=== PATIENT | female | born 1945 | race Caucasian/White ===

== ENCOUNTER 2020-05-27 14:46 | Inpatient (IN) | payer BC, MEDICARE ==
[2020-05-27] MEDS ORDERED: Albuterol Sulfate 1.25 MG/3 ML NEB ONE (15:11)
[2020-05-27] MEDS ORDERED: Albuterol 200 PUFF (6.7GM INHALER) ONE (15:12)
[2020-05-27] MEDS ORDERED: cefTRIAXone\\ROCEPHIN 1 GM VIAL ONE ×2 (15:23→15:52)
[2020-05-27] MEDS ORDERED: Magnesium 2 GM/50 ML BAG (IN WATER) ONE (15:23)
[2020-05-27] MEDS ORDERED: Dexamethasone 10 MG/ML VIAL ONE (15:23)
[2020-05-27] MEDS ORDERED: Lorazepam 2 MG/ML VIAL ONE ×2 (15:51→19:39)
[2020-05-27] MEDS ORDERED: Ondansetron PF 4 MG/2 ML Vial ONE (15:52)
[2020-05-27] MEDS ORDERED: Azithromycin 500 MG VIAL ONE (16:03)
[2020-05-27 16:09] LABS: #Lymphocytes 0.9 thou/uL (1.20-3.40); #Monocytes 0.6 thou/uL (0.11-0.59); #Neutrophils 4.7 thou/uL (1.40-6.50); %Basophils 0.3 % (0.0-1.0); %Eosinophils 0.4 % (0.0-10.0); %Monocytes 9.2 % (0.0-10.0); %Neutrophils 76.1 % (42.0-75.0); Mean Corpuscular HGB CONC 32.6 g/dL (32.0-36.0); Mean Corpuscular Volume 85.7 fL (78.0-98.0); Mean Platelet Volume 9.4 fL (7.4-10.4); Platelet Count 148 thou/uL (130-400); Red Blood Cell (RBC) Count 3.93 mill/uL (4.20-5.40); White Blood Cell (WBC) Count 6.2 thou/uL (4.8-10.8)
--- NOTE | 2020-05-27 16:22 | RAD ---
RADIOGRAPH CHEST 1 VIEW: Date: 05/27/20 Time: 3:48 p.m. HISTORY: 74-year-old female with respiratory distress, dyspnea, and hypoxemia with fever. COMPARISON: 09/23/16. FINDINGS: There is mild haziness with reticulonodular densities at left lung base, which appears to be new or m ore prominent than on the prior study. It is uncertain whether this is due to overlying soft tissues, becoming more pronounced because of the lordotic positioning on the current study compared to the pr ior. The rest of the visualized lung saunders are grossly clear. No cardiomegaly or pneumothorax. No pu lmonary edema. No effacement of lateral costophrenic angles. IMPRESSION: 1. Questionable mild early infiltrate at left base versus artifact. 2. Recommend short interval follow-up with PA and lateral views. 3. No consolidation. 4. The rest of the lung saunders are clear. JN [] POS: JIN
[2020-05-27 16:45] LABS: SARS-CoV-2 NAA Rapid Test DETECTED (NotDetected)
[2020-05-27 16:45] LABS: ALT (SGPT) 13 U/L (8-55); AST (SGOT) 25 U/L (5-34); Alkaline Phosphatase 66 U/L (40-110); Anion Gap 13 mmol/L (10-20); BUN (Urea Nitrogen) 12 mg/dL (9.8-20.1); Bilirubin, Total 0.3 mg/dL (0.2-1.2); CK (CPK) 172 U/L (29-168); Calc. Creatinine Clearance 0 mL/min (70-130); Calcium 7.4 mg/dL (7.8-10.44); Carbon Dioxide 22 mmol/L (23-31); Chloride 100 mmol/L (98-107); Globulin 3.2 g/dL (2.4-3.5); Glucose 188 mg/dL (83-110); Magnesium 1.5 mg/dL (1.6-2.6); Potassium 4.3 mmol/L (3.5-5.1); Protein, Total 6.2 g/dL (6.0-8.3); Sodium 131 mmol/L (136-145)
--- NOTE | 2020-05-27 17:51 | PDOC.HHP ---
Hospitalist HPI - History of Present Illness Shortness of breath History of Present Illness: Patient has underlying history of COPD, patient is coming to emergency room with increasing shortness of breath, patient was also having fever on and off yesterday, patient was also tachypneic, patient reports that recently see went to [place] and after that her symptoms started, she was exposed with multiple people who were sick, for last 2 days she has worsening of symptoms, she was tested positive for COVID-19 in the emergency room, when she arrived to emergency room she was saturating 86% and she was tachypneic, she was requiring nonrebreather by EMS and subsequently in the emergency room patient was kept on BiPAP because of respiratory distress, patient denies any runny nose or nasal congestion, she has wheezing, she has cough, she has increasing shortness of breath, she denies any nasal congestion or sinus pain or sore throat. She does not have any loss of taste or smell sensation. ED Course: In the emergency room patient received 2 L of IV fluid, Rocephin and azithr omycin, lorazepam 1 mg, magnesium sulfate 2 g, Decadron 10 mg, Zofran 4 mg VITAL SIGNS Tahmina May 27, 2020 14:56 ELENA Hairston Klara BP: 126/66, MAP: 86, Pulse: 107, Resp: 25, Temp: 98.7 (Oral), Pain: 7, O2 sat: 99 on (Non Rebreather), Time: 05/27/2020 14:56. VITAL SIGNS Tahmina May 27, 2020 15:13 ELENA Hairston Klara Pulse: 99, Time: 05/27/2020 15:13. VITAL SIGNS Tahmina May 27, 2020 16:14 ELENA Hairston Klara BP: 136/63, MAP: 87, Pulse: 95, Resp: 27, Pain: 5, O2 sat: 96 on (Bipap), Time: 05/27/2020 16:14. Hospitalist ROS - Review of Systems Constitutional: reports: fever, weakness, malaise Eyes: denies: pain, vision change, conjunctivae inflammation, eyelid inflammation, redness, other ENT: denies: ear pain, ear discharge, nose pain, nose discharge, nose congestion, mouth pain, mouth swelling, throat pain, throat swelling, other Respiratory: reports: cough, shortness of breath, SOB with excertion, sputum, wheezing Cardiovascular: denies: chest pain, palpitations, orthopnea, paroxysmal noc. dyspnea, edema, light headedness, other Gastrointestinal: denies: nausea, vomiting, abdominal pain, diarrhea, constipation, melena, hematochezia, other Genitourinary: denies: dysuria, frequency, incontinence, hematuria, retention, other Musculoskeletal: denies: neck pain, shoulder pain, arm pain, back pain, hand pain, leg pain, foot pain, other Skin: denies: rash, lesions, yanelis, bruising, other - Medication Medications: Allergies No Known Drug Allergies Allergy (Verified 09/21/16 00:46) Home medication Medication Instructions Recorded Confirmed Type Amlodipine Besylate [amLODIPine 5 mg PO DAILY 09/21/16 09/21/16 History Besylate] Aspirin Chewable [Aspirin Chewable 81 mg PO DAILY 09/21/16 09/21/16 History Tablet] Budesonide-Formoterol [Symbicort 1 puff INH BID 09/21/16 09/21/16 History 160-4.5] Citalopram [CeleXA] 20 mg PO DAILY 09/21/16 09/21/16 History Omeprazole 20 mg PO DAILY 09/21/16 09/21/16 History Tiotropium [Spiriva Handihaler] 18 mcg INH DAILY 09/21/16 09/21/16 History traZODone 100 mg PO HS 09/21/16 09/21/16 History Resuscitation Status - Order Detail: 05/27/20 17:26 Resuscitation Status Routine Resuscitation Status: FULL: Full Resuscitation Hospitalist History - Past Medical History Other Medical History: COPD Hypertension History of lung cancer - Past Surgical History Other Surgical History: Lung biopsy Appendicectomy Breast biopsy Past psychiatric history anxiety and depression - Family History Other Family History: No strong family history of premature coronary artery disease stroke or cancer - Social History Other Social History: Patient denies any alcohol abuse, patient is former smoker, patient quit smoking few years ago, denies any other illicit drug abuse, lives at home with family - Exam General Appearance: NAD, awake alert, ill appearing Eye: PERRL, anicteric sclera ENT: normocephalic atraumatic, no oropharyngeal lesions Neck: supple, symmetric, no JVD, no thyromegaly Heart: RRR, no murmur, no gallops, no rubs Heart - other findings: Tachycardia Respiratory: rhonchi, tachypneic, wheezes Gastrointestinal: soft, non-tender, non-distended, normal bowel sounds Extremities: no cyanosis, no clubbing, no edema Skin: normal turgor, no lesions Neurological: no focal deficits Musculoskeletal: normal tone, normal strength, no muscle wasting Psychiatric: normal affect, normal behavior, A&O x 3 Hospitalist Results - Labs Result Diagrams: 05/27/20 15:47 05/27/20 15:47 Lab results: WBC 6.2 thou/uL (4.8-10.8) 05/27/20 15:47 Hgb 11.0 g/dL (12.0-16.0) L 05/27/20 15:47 Hct 33.7 % (36.0-47.0) L 05/27/20 15:47 MCV 85.7 fL (78.0-98.0) 05/27/20 15:47 Plt Count 148 thou/uL (130-400) 05/27/20 15:47 Neutrophils % 76.1 % (42.0-75.0) H 05/27/20 15:47 Sodium 131 mmol/L (136-145) L 05/27/20 15:47 Potassium 4.3 mmol/L (3.5-5.1) 05/27/20 15:47 Chloride 100 mmol/L (98-107) 05/27/20 15:47 Carbon Dioxide 22 mmol/L (23-31) L 05/27/20 15:47 BUN 12 mg/dL (9.8-20.1) 05/27/20 15:47 Creatinine 0.88 mg/dL (0.6-1.1) 05/27/20 15:47 Glucose 188 mg/dL (83-110) H 05/27/20 15:47 Lactic Acid 1.1 mmol/L (0.5-2.2) 05/27/20 15:47 Calcium 7.4 mg/dL (7.8-10.44) L 05/27/20 15:47 Total Bilirubin 0.3 mg/dL (0.2-1.2) 05/27/20 15:47 AST 25 U/L (5-34) 05/27/20 15:47 ALT 13 U/L (8-55) 05/27/20 15:47 Alkaline Phosphatase 66 U/L (40-110) 05/27/20 15:47 Creatine Kinase 172 U/L (29-168) H 05/27/20 15:47 Troponin I 0.010 ng/mL (< 0.028) 05/27/20 15:47 B-Natriuretic Peptide Less than 10.0 pg/mL (0-100) 05/27/20 15:47 Serum Total Protein 6.2 g/dL (6.0-8.3) 05/27/20 15:47 Albumin 3.0 g/dL (3.4-4.8) L 05/27/20 15:47 - EKG Interpretation EKG: Heart rate 92 QTc 450 normal sinus rhythm - Radiology Interpretation Chest x-ray Status: image reviewed by me Additional Comment: Chest x-ray consistent with early infiltrate in left base, Hospitalist H&P A/P - Problem (1) Acute respiratory failure due to COVID-19 Code(s): U07.1 - COVID-19; J96.00 - ACUTE RESPIRATORY FAILURE, UNSP W HYPOXIA OR HYPERCAPNIA Status: Acute (2) COPD exacerbation Code(s): J44.1 - CHRONIC OBSTRUCTIVE PULMONARY DISEASE W (ACUTE) EXACERBATION Status: Acute (3) Pneumonia due to 2019-nCoV Code(s): U07.1 - COVID-19; J12.89 - OTHER VIRAL PNEUMONIA Status: Acute (4) Hypomagnesemia Code(s): E83.42 - HYPOMAGNESEMIA Status: Acute (5) Hyponatremia Code(s): E87.1 - HYPO-OSMOLALITY AND HYPONATREMIA Status: Acute (6) Anxiety and depression Code(s): F41.9 - ANXIETY DISORDER, UNSPECIFIED; F32.9 - MAJOR DEPRESSIVE D ISORDER, SINGLE EPISODE, UNSPECIFIED Status: Chronic (7) Hypertension Code(s): I10 - ESSENTIAL (PRIMARY) HYPERTENSION Status: Chronic (8) History of lung cancer Code(s): Z85.118 - PERSONAL HISTORY OF MALIGNANT NEOPLASM OF BRONCHUS AND LUNG Status: Chronic - Plan Plan: Admission to [facility] BiPAP Pulmonary consultation Wean off BiPAP as tolerated Solu-Medrol 40 mg IV every 6 hourly Albuterol nebulization/MDI inhaler every 6 hourly and as needed Dulera 2 puff inhalation twice daily Empiric Rocephin 1 g every 24 hours, Azithromycin 500 mg IV daily for 3 days Remdesivir evaluation Vitamin C, zinc sulfate, vitamin D3 Her home medication will be reconciled Oxygen to keep saturation above 92% Airborne contact and droplet isolation for Covid Monitor for any deterioration Monitor inflammatory markers DVT prophylaxis Lovenox 40 mg subcu daily GI prophylaxis Pepcid 20 mg p.o. or IV twice daily CODE STATUS patient is full code Disposition plan based on clinical course, Plan of care discussed with the patient in detail., Answered all her questions
[2020-05-27] MEDS ORDERED: HYDROcodone/Acetaminophen 5/325 mg Tablet PO PRN (17:55)
[2020-05-27] MEDS ORDERED: Sodium Chloride 0.65% Nasal 44 ML BOT EA NARE PRN (17:55)
[2020-05-27] MEDS ORDERED: Ondansetron ODT 4 MG TAB PO PRN (17:55)
[2020-05-27] MEDS ORDERED: Calcium Carbonate 500 MG ChewTAB PO PRN (17:55)
[2020-05-27] MEDS ORDERED: Acetaminophen 325 MG TAB PO PRN (17:55)
[2020-05-27] MEDS ORDERED: Senokot S 8.6-50 MG TAB PO PRN (17:55)
[2020-05-27] MEDS ORDERED: Loratadine 10 MG TAB PO PRN (17:55)
[2020-05-27] MEDS ORDERED: Cepastat Lozenges 1 LOZ PO PRN (17:55)
[2020-05-27] MEDS ORDERED: Guaifenesin DM 100-10/5 ML UDCUP PO PRN (17:55)
[2020-05-27] MEDS ORDERED: Ondansetron PF 4 MG/2 ML Vial IVP PRN (17:55)
[2020-05-27] MEDS ORDERED: Benzonatate 100 MG CAP PO PRN (17:55)
[2020-05-27] MEDS ORDERED: Bisacodyl 10 MG SUPP PR PRN (17:55)
[2020-05-27] MEDS ORDERED: Loperamide HCl 2 MG CAP PO PRN (17:55)
[2020-05-27] MEDS ORDERED: hydrALAZINE 20 MG/ML VIAL SLOW IVP PRN (17:55)
[2020-05-27 18:30] LABS: Bilirubin Negative (Negative); Blood, Urine Negative (Negative); Clarity Clear (Clear); Glucose, Urine (Dipstick) 300 mg/dL (Negative); Ketone, Urine Trace mg/dL (Negative); Leukocyte Negative Leu/uL (Negative); Nitrite Negative (Negative); Protein, Urine (Dipstick) Negative (Neg-Trace); Specific Gravity, Urine 1.006 (1.002-1.036); Urobilinogen Normal mg/dL (Less than 2); pH, Urine 5.5 (5.0-9.0)
[2020-05-27] MEDS ORDERED: Albuterol 200 PUFF (6.7GM INHALER) INH PRN (18:52)
[2020-05-27] MEDS ORDERED: Albuterol Sulfate 2.5 mg/3 ml Neb NEB SCH (19:00)
[2020-05-28] MEDS: Mometasone 200 MCG/Formoterol 5 MCG 120 PUFF INHALER INH SCH ×3 (01:12→18:33)
[2020-05-28] MEDS: Famotidine/PF 20 mg/2ml Vial SLOW IVP SCH ×3 (01:18→21:02)
[2020-05-28] MEDS: Famotidine 20 MG TAB PO SCH ×3 (01:18→21:02)
[2020-05-28] MEDS: methylPREDNISolone Sod Succ/PF 125 MG/2 ML VIAL IVP SCH ×3 (01:18→07:10)
[2020-05-28 02:10] VITALS: BMI 29.1
[2020-05-28 04:15] LABS: #Lymphocytes 0.8 thou/uL (1.20-3.40); #Monocytes 0.1 thou/uL (0.11-0.59); #Neutrophils 2.4 thou/uL (1.40-6.50); %Basophils 0.3 % (0.0-1.0); %Eosinophils 0.3 % (0.0-10.0); %Monocytes 3.4 % (0.0-10.0); %Neutrophils 72.9 % (42.0-75.0); Hemoglobin 11.4 g/dL (12.0-16.0); Mean Corpuscular HGB CONC 32.5 g/dL (32.0-36.0); Mean Corpuscular Volume 86.2 fL (78.0-98.0); Platelet Count 164 thou/uL (130-400); RBC Distribution Width 13.6 % (11.5-14.5); Red Blood Cell (RBC) Count 4.09 mill/uL (4.20-5.40); White Blood Cell (WBC) Count 3.3 thou/uL (4.8-10.8)
[2020-05-28 04:35] LABS: ALT (SGPT) 13 U/L (8-55); AST (SGOT) 14 U/L (5-34); Albumin 3.3 g/dL (3.4-4.8); Alkaline Phosphatase 70 U/L (40-110); Anion Gap 14 mmol/L (10-20); BUN (Urea Nitrogen) 10 mg/dL (9.8-20.1); Bilirubin, Total 0.2 mg/dL (0.2-1.2); CRP (Inflammatory) 4.82 mg/dL (= or < 0.5); Calc. Creatinine Clearance 75 mL/min (70-130); Calcium 7.9 mg/dL (7.8-10.44); Carbon Dioxide 20 mmol/L (23-31); Chloride 106 mmol/L (98-107); Glucose 154 mg/dL (83-110); Magnesium 2.2 mg/dL (1.6-2.6); Potassium 4.5 mmol/L (3.5-5.1); Protein, Total 6.3 g/dL (6.0-8.3); Sodium 135 mmol/L (136-145)
[2020-05-28] MEDS ORDERED: Dexamethasone 6 MG in Sodium Chloride 0.9% 50 ML IVPB SCH (09:00)
[2020-05-28] MEDS: Ascorbic Acid 500 mg Chewable Tablet PO SCH (10:57)
[2020-05-28] MEDS: Enoxaparin Sodium 40 MG/0.4 ML SYRINGE SC SCH (10:57)
[2020-05-28] MEDS: Cholecalciferol 1,000 UNITS (25 MCG) TAB PO SCH (10:58)
[2020-05-28] MEDS: Zinc Sulfate 220 MG CAP PO SCH (10:58)
--- NOTE | 2020-05-28 14:08 | PDOC.HOSPP ---
- Subjective Encounter Date: 05/28/20 Encounter Time: 08:00 Subjective: Patient seen in follow-up for COVID-19 infection. She denies chest pain or shortness of breath at rest. She reports cough. - Objective Vital Signs & Weight: Vital Signs (12 hours) Temp Pulse Ox 05/28/20 08:00 100 05/28/20 04:00 97.7 F Weight Weight 149 lb 6 oz Most Recent Monitor Data Heart Rate from ECG 83 NIBP 149/68 NIBP BP-Mean 121 Respiration from ECG 18 SpO2 100 I&O: 05/27/20 05/28/20 05/29/20 06:59 06:59 06:59 Intake Total 330 Output Total 150 Balance 180 Result Diagrams: 05/28/20 04:00 05/28/20 04:00 Additional Labs: I reviewed patient's labs and MAR EKG Reviewed by me: Yes (Normal sinus rhythm on telemetry) Hospitalist ROS - Review of Systems Respiratory: reports: cough, dry, SOB with excertion. denies: shortness of breath, hemoptysis, pleuritic pain, sputum, wheezing Cardiovascular: denies: chest pain, palpitations, orthopnea, paroxysmal noc. dyspnea, edema, light headedness - Medication Medications: Active Medications Generic Name Dose Route Start Last Admin Trade Name Freq PRN Reason Stop Dose Admin Albuterol Sulfate 2 puff 05/27/20 18:52 05/28/20 07:21 Albuterol 200 Puff (6.7gm Inhaler) INH 2 puff Q6H PRN Administration Dyspnea/Wheezing/SOB Ascorbic Acid 1,000 mg 05/28/20 09:00 05/28/20 10:57 Ascorbic Acid 500 Mg Chewable Tablet PO 1,000 mg DAILY PAIGE Administration Cholecalciferol 1,000 units 05/28/20 09:00 05/28/20 10:58 Cholecalciferol 1,000 Units (25 Mcg) Tab PO 1,000 units DAILY PAIGE Administration Enoxaparin Sodium 40 mg 05/28/20 09:00 05/28/20 10:57 Enoxaparin Sodium 40 Mg/0.4 Ml Syringe SC 40 mg 0900 PAIGE Administration Famotidine 20 mg 05/27/20 21:00 05/28/20 10:58 Famotidine 20 Mg Tab PO 20 mg BID PAIGE Administration Famotidine 20 mg 05/27/20 21:00 05/28/20 12:12 Famotidine/Pf 20 Mg/2ml Vial SLOW IVP Not Given Q12HR PAIGE Dexamethasone 6 mg/ Sodium 50.6 mls @ 100 mls/hr 05/28/20 09:00 05/28/20 1 0:58 Chloride IVPB 50.6 mls DAILY PAIGE Administration Mometasone Furoate/Formoterol Fumar 2 puff 05/27/20 18:30 05/28/20 07:12 Mometasone 200 Mcg/Formoterol 5 Mcg 120 Puff Inhaler INH 2 puff BID-RT PAIGE Administration Zinc Sulfate 220 mg 05/28/20 09:00 05/28/20 10:58 Zinc Sulfate 220 Mg Cap PO 220 mg DAILY PAIGE Administration - Exam General Appearance: awake alert Eye: anicteric sclera ENT: normocephalic atraumatic Neck: supple, symmetric Heart: RRR Respiratory: wheezes Gastrointestinal: soft, non-tender Extremities: no clubbing Skin: no rashes Psychiatric: normal affect, normal behavior Hosp A/P - Plan -Assessment (1) Acute respiratory failure due to COVID-19 Code(s): U07.1 - COVID-19; J96.00 - ACUTE RESPIRATORY FAILURE, UNSP W HYPOXIA OR HYPERCAPNIA Status: Acute (2) COPD exacerbation Code(s): J44.1 - CHRONIC OBSTRUCTIVE PULMONARY DISEASE W (ACUTE) EXACERBATION Status: Acute (3) Pneumonia due to 2019-nCoV Code(s): U07.1 - COVID-19; J12.89 - OTHER VIRAL PNEUMONIA Status: Acute (4) Hyponatremia Code(s): E87.1 - HYPO-OSMOLALITY AND HYPONATREMIA Status: Acute (5) Anxiety and depression Code(s): F41.9 - ANXIETY DISORDER, UNSPECIFIED; F32.9 - MAJOR DEPRESSIVE DISORDER, SINGLE EPISODE, UNSPECIFIED Status: Chronic (6) Hypertension Code(s): I10 - ESSENTIAL (PRIMARY) HYPERTENSION Status: Chronic (7) History of lung cancer Code(s): Z85.118 - PERSONAL HISTORY OF MALIGNANT NEOPLASM OF BRONCHUS AND LUNG Status: Chronic (8) Hypomagnesemia Code(s): E83.42 - HYPOMAGNESEMIA Status: Resolved - Plan Patient has been weaned off of BiPAP. Start dexamethasone. Bronchodilators as needed. Sodium improved 135. Continue ceftriaxone and IV azithromycin. Pharmacy consult for remdesivir evaluation Continue Vitamin C, zinc sulfate, vitamin D3 Airborne contact and droplet isolation for Covid Monitor for any deterioration Monitor inflammatory markers DVT prophylaxis Lovenox 40 mg subcu daily
--- NOTE | 2020-05-28 14:15 | CON ---
DATE OF CONSULTATION: HISTORY OF PRESENT ILLNESS: Nyla Redding is a 74-year-old female, who was admitted on May 27 at 1454 hours with cough, shortness of breath on several days duration. In the ER, blood pressure 122/66, temperature 97, non-rebreather 99%. She was initially on BiPAP. She is now downsized to . She has been transferred to a monitored bed out of the MICU. PAST MEDICAL HISTORY: Lung cancer diagnosed several years ago. Previous tobacco abuse. COPD. PREVIOUS SURGERIES: Included; 1. Lung biopsy. 2. Appendix. 3. Breast biopsy. SOCIAL HISTORY: Former smoker, quit 10 years ago. No alcohol abuse. HOME MEDICATIONS: Include; 1. Ventolin inhaler. 2. Trazodone. 3. Spiriva. 4. Omeprazole. 5. Myrbetriq 25. 6. Celexa 40. 7. Symbicort. 8. Aspirin. She is now on ceftriaxone, Zithromax, Decadron. REVIEW OF SYSTEMS: Otherwise, 10-point negative. PHYSICAL EXAMINATION: VITAL SIGNS: Temperature is 97, pulse 80, sats 100% this morning, respiratory rate is 18. CHEST: No wheezing. No crackles. CARDIAC: Normal S1, S2. No gallops. ABDOMEN: No masses. LABORATORY DATA: White count 3000, H and H of 11 and 33, platelet count 164. On 05/27, hernandez positive. X-ray shows minimal bibasilar infiltrates. IMPRESSION: 1. Hernandez positive pneumonia. 2. Respiratory failure. 3. Bronchitis. 4. Lung cancer. 5. COPD. PLAN: She appears to be relatively asymptomatic this morning. We will go ahead and initiate her home medicine. Continue steroids. She has not received any remdesivir or plasma. She remains hypoxemic. Consider a bag of convalescent plasma. TIME SPENT: Consultation note, 70 minutes, 50% direct patient care. Job ID: [id number]
[2020-05-28] MEDS: cefTRIAXone\\ROCEPHIN 1 GM in Sodium Chloride 0.9% 100 ML IVPB SCH (14:48)
[2020-05-28] MEDS: Azithromycin 500 MG in Sodium Chloride 0.9% 250 ML 250 ML IVPB SCH (17:02)
[2020-05-29] MEDS: Mometasone 200 MCG/Formoterol 5 MCG 120 PUFF INHALER INH SCH ×2 (05:39→19:08)
[2020-05-29] MEDS: Aspirin Chewable 81 MG TAB PO SCH (08:15)
[2020-05-29] MEDS: Ascorbic Acid 500 mg Chewable Tablet PO SCH (08:16)
[2020-05-29] MEDS: Zinc Sulfate 220 MG CAP PO SCH (08:16)
[2020-05-29] MEDS: Enoxaparin Sodium 40 MG/0.4 ML SYRINGE SC SCH (08:17)
[2020-05-29] MEDS: Cholecalciferol 1,000 UNITS (25 MCG) TAB PO SCH (08:17)
[2020-05-29] MEDS: Amlodipine 5 MG TAB PO SCH (08:18)
[2020-05-29] MEDS: Citalopram 20 MG TAB PO SCH (08:18)
[2020-05-29] MEDS: Dexamethasone 4 mg/ml Vial SLOW IVP SCH (08:23)
--- NOTE | 2020-05-29 09:49 | PDOC.HOSPP ---
- Subjective Encounter Date: 05/29/20 Encounter Time: 07:45 Subjective: Patient seen and examined bedside today, this morning patient was experiencing shortness of breath, she was on 2 to 3 L nasal cannula oxygen, she has no fever, - Objective Vital Signs & Weight: Vital Signs (12 hours) Temp Pulse Resp BP Pulse Ox 05/29/20 08:30 98.4 F 86 30 H 147/67 H 96 05/29/20 04:15 98.8 F 78 18 137/59 L 98 05/28/20 23:45 97.9 F 63 19 143/69 H 94 L Weight Weight 149 lb 6 oz Most Recent Monitor Data Heart Rate from ECG 83 NIBP 149/68 NIBP BP-Mean 121 Respiration from ECG 18 SpO2 100 I&O: 05/28/20 05/29/20 05/30/20 06:59 06:59 06:59 Intake Total 330 480 Output Total 150 400 Balance 180 80 Result Diagrams: 05/28/20 04:00 05/28/20 04:00 EKG Reviewed by me: Yes (Normal sinus rhythm) Hospitalist ROS - Review of Systems Constitutional: reports: weakness, malaise. denies: fever, chills, sweats, other Respiratory: reports: cough, shortness of breath, SOB with excertion. denies: dry, hemoptysis, pleuritic pain, sputum, wheezing, other Cardiovascular: denies: chest pain, palpitations, orthopnea, paroxysmal noc. dyspnea, edema, light headedness, other Gastrointestinal: denies: nausea, vomiting, abdominal pain, diarrhea, constipation, melena, hematochezia, other Genitourinary: denies: dysuria, frequency, incontinence, hematuria, retention, other Musculoskeletal: denies: neck pain, shoulder pain, arm pain, back pain, hand pain, leg pain, foot pain, other Skin: denies: rash, lesions, yanelis, bruising, other - Medication Medications: Active Medications Generic Name Dose Route Start Last Admin Trade Name Freq PRN Reason Stop Dose Admin Albuterol Sulfate 2 puff 05/27/20 18:52 05/28/20 07:21 Albuterol 200 Puff (6.7gm Inhaler) INH 2 puff Q6H PRN Administration Dyspnea/Wheezing/SOB Amlodipine Besylate 5 mg 05/29/20 09:00 05/29/20 08:18 Amlodipine 5 Mg Tab PO 5 mg DAILY PAIGE Administration Ascorbic Acid 1,000 mg 05/28/20 09:00 05/29/20 08:16 Ascorbic Acid 500 Mg Chewable Tablet PO 1,000 mg DAILY PAIGE Administration Aspirin 81 mg 05/29/20 09:00 05/29/20 08:15 Aspirin Chewable 81 Mg Tab PO 81 mg DAILY PAIGE Administration Cholecalciferol 1,000 units 05/28/20 09:00 05/29/20 08:17 Cholecalciferol 1,000 Units (25 Mcg) Tab PO 1,000 units DAILY PAIGE Administration Citalopram Hydrobromide 40 mg 05/29/20 09:00 05/29/20 08:18 Citalopram 20 Mg Tab PO 40 mg DAILY PAIGE Administration Dexamethasone 6 mg 05/29/20 09:00 05/29/20 08:23 Dexamethasone 4 Mg/Ml Vial SLOW IVP 6 mg DAILY PAIGE Administration Enoxaparin Sodium 40 mg 05/28/20 09:00 05/29/20 08:17 Enoxaparin Sodium 40 Mg/0.4 Ml Syringe SC 40 mg 0900 PAIGE Administration Azithromycin 500 mg/ Sodium 250 mls @ 250 mls/hr 05/28/20 16:00 05/28/20 17:02 Chloride IVPB 250 mls 1600 PAIGE Administration Ceftriaxone Sodium 1 gm/ 100 mls @ 200 mls/hr 05/28/20 15:00 05/28/20 14:48 Sodium Chloride IVPB 100 mls 1500 PAIGE Administration Mirabegron 25 mg 05/29/20 09:00 05/29/20 08:23 Mirabegron Er 25 Mg Tab PO 25 mg DAILY PAIGE Administration Mometasone Furoate/Formoterol Fumar 2 puff 05/27/20 18:30 05/29/20 05:39 Mometasone 200 Mcg/Formoterol 5 Mcg 120 Puff Inhaler INH 2 puff BID-RT PAIGE Administration Pantoprazole Sodium 40 mg 05/29/20 09:00 05/29/20 08:18 Pantoprazole 40 Mg Tab PO 40 mg DAILY PAIGE Administration Zinc Sulfate 220 mg 05/28/20 09:00 05/29/20 08:16 Zinc Sulfate 220 Mg Cap PO 220 mg DAILY PAIGE Administration - Exam General Appearance: NAD, awake alert Eye: PERRL, anicteric sclera ENT: normocephalic atraumatic, no oropharyngeal lesions Neck: supple, symmetric, no JVD, no thyromegaly Heart: RRR, no murmur, no gallops, no rubs Respiratory: no wheezes, no ronchi Respiratory - other findings: Few scattered rales noted Gastrointestinal: soft, non-tender, non-distended, normal bowel sounds Extremities: no cyanosis, no clubbing, no edema Skin: normal turgor, no lesions Neurological: no focal deficits Musculoskeletal: normal tone, normal strength Psychiatric: normal affect, normal behavior Hosp A/P (1) Acute respiratory failure due to COVID-19 Code(s): U07.1 - COVID-19; J96.00 - ACUTE RESPIRATORY FAILURE, UNSP W HYPOXIA OR HYPERCAPNIA Status: Acute (2) COPD exacerbation Code(s): J44.1 - CHRONIC OBSTRUCTIVE PULMONARY DISEASE W (ACUTE) EXACERBATION Status: Acute (3) Pneumonia due to 2019-nCoV Code(s): U07.1 - COVID-19; J12.89 - OTHER VIRAL PNEUMONIA Status: Acute (4) Hypomagnesemia Code(s): E83.42 - HYPOMAGNESEMIA Status: Resolved (5) Hyponatremia Code(s): E87.1 - HYPO-OSMOLALITY AND HYPONATREMIA Status: Resolved (6) Anxiety and depression Code(s): F41.9 - ANXIETY DISORDER, UNSPECIFIED; F32.9 - MAJOR DEPRESSIVE DISORDER, SINGLE EPISODE, UNSPECIFIED Status: Chronic (7) Hypertension Code(s): I10 - ESSENTIAL (PRIMARY) HYPERTENSION Status: Chronic Qualifiers: Hypertension type: essential hypertension Qualified Code(s): I10 - E ssential (primary) hypertension (8) History of lung cancer Code(s): Z85.118 - PERSONAL HISTORY OF MALIGNANT NEOPLASM OF BRONCHUS AND LUNG Status: Chronic (9) Chronic respiratory failure with hypoxia, on home O2 therapy Code(s): J96.11 - CHRONIC RESPIRATORY FAILURE WITH HYPOXIA; Z99.81 - DEPENDENCE ON SUPPLEMENTAL OXYGEN Status: Chronic - Plan old records reviewed/req, continue antibiotics, respiratory therapy, DVT proph w/lovenox Continue empiric Rocephin azithromycin I have reconciled her home medication Tomorrow we will repeat labs Patient has clinical improvement Ambulate in her room and assess for oxygen saturation, if she needs only 2 to 3 L of nasal cannula oxygen then will consider discharging her home soon Patient is on dexamethasone, vitamin supplementation,
--- NOTE | 2020-05-29 12:18 | EKG ---
Test Reason : Blood Pressure : / mmHG Vent. Rate : 092 BPM Atrial Rate : 097 BPM P-R Int : 000 ms QRS Dur : 066 ms QT Int : 364 ms P-R-T Axes : 000 024 062 degrees QTc Int : 450 ms Accelerated Junctional rhythm Abnormal ECG Confirmed by ADRIAN ABERNATHY ([id number]), development editor MICKI AHZEL ([id number]) on 05/29/2020 12:18:18 PM Referred By: Confirmed By:ADRIAN ABERNATHY
--- NOTE | 2020-05-29 14:40 | PRG ---
DATE OF SERVICE: 05/29/2020 SUBJECTIVE: Nyla Redding is a 74-year-old female. OBJECTIVE: VITAL SIGNS: Temperature 98, pulse 89, respiratory rate 18, saturations 100% on high-flow, blood pressure 105/61. She is on 30% and 40 L high-flow. CHEST: No wheezing. No crackles. CARDIAC: Normal S1 and S2. No gallops. ABDOMEN: No masses. ASSESSMENT: Mchugh positive pneumonia, respiratory failure, chronic obstructive pulmonary disease. PLAN: Continue steroids completely, neb treatments, supportive care. Empiric antibiotics. We will follow. Job ID: [id number]
[2020-05-29] MEDS: cefTRIAXone\\ROCEPHIN 1 GM in Sodium Chloride 0.9% 100 ML IVPB SCH (15:37)
[2020-05-29] MEDS: Azithromycin 500 MG in Sodium Chloride 0.9% 250 ML 250 ML IVPB SCH (16:46)
[2020-05-29] MEDS: traZODone HCl 50 MG TAB PO SCH (21:06)
[2020-05-30 05:36] LABS: #Monocytes 0.8 thou/uL (0.11-0.59); #Neutrophils 7.2 thou/uL (1.40-6.50); %Basophils 0.2 % (0.0-1.0); %Eosinophils 0.2 % (0.0-10.0); %Lymphocytes 10.6 % (21.0-51.0); %Monocytes 8.6 % (0.0-10.0); %Neutrophils 80.4 % (42.0-75.0); Hemoglobin 11.3 g/dL (12.0-16.0); Mean Corpuscular HGB CONC 31.7 g/dL (32.0-36.0); Mean Corpuscular Volume 85.2 fL (78.0-98.0); Mean Platelet Volume 7.1 fL (7.4-10.4); Platelet Count 212 thou/uL (130-400); RBC Distribution Width 13.6 % (11.5-14.5)
[2020-05-30 05:47] LABS: Anion Gap 14 mmol/L (10-20); BUN (Urea Nitrogen) 12 mg/dL (9.8-20.1); CRP (Inflammatory) 4.53 mg/dL (= or < 0.5); Calc. Creatinine Clearance 70 mL/min (70-130); Calcium 8.3 mg/dL (7.8-10.44); Carbon Dioxide 27 mmol/L (23-31); Chloride 99 mmol/L (98-107); Glucose 103 mg/dL (83-110); Potassium 3.8 mmol/L (3.5-5.1); Sodium 136 mmol/L (136-145)
[2020-05-30] MEDS: Mometasone 200 MCG/Formoterol 5 MCG 120 PUFF INHALER INH SCH ×2 (06:27→17:33)
[2020-05-30] MEDS: Tiotropium Bromide 4 GM INHALER IH SCH (10:10)
[2020-05-30] MEDS: Amlodipine 5 MG TAB PO SCH (10:11)
[2020-05-30] MEDS: Cholecalciferol 1,000 UNITS (25 MCG) TAB PO SCH (10:12)
[2020-05-30] MEDS: Dexamethasone 4 mg/ml Vial SLOW IVP SCH (10:12)
[2020-05-30] MEDS: Aspirin Chewable 81 MG TAB PO SCH (10:12)
[2020-05-30] MEDS: Ascorbic Acid 500 mg Chewable Tablet PO SCH (10:12)
[2020-05-30] MEDS: Citalopram 20 MG TAB PO SCH (10:12)
[2020-05-30] MEDS: Zinc Sulfate 220 MG CAP PO SCH (10:13)
[2020-05-30] MEDS: Enoxaparin Sodium 40 MG/0.4 ML SYRINGE SC SCH (10:13)
--- NOTE | 2020-05-30 10:22 | PDOC.DS.DS ---
Provider - Provider Date of Admission: 05/27/20 17:14 Date of Discharge: 05/30/20 Admitting Provider: Danielle Lopez MD Consultations: Pulmonary Primary Care Physician: NO PCP PROVIDER Course - Hospital Course Resuscitation Status: 05/27/20 17:26 Resuscitation Status Routine Resuscitation Status: FULL: Full Resuscitation - Labs Lab Results: 05/30/20 05:00 05/30/20 04:59 Abnormal Lab Results - Last 48 hrs 05/30/20 04:59: C-Reactive Protein 4.53 H 05/30/20 05:00: Lactate Dehydrogenase 282 H 05/30/20 05:00: Hgb 11.3 L, Hct 35.8 L, MCHC 31.7 L, MPV 7.1 L, Neutrophils % 80.4 H, Lymphocytes % 10.6 L, Neutrophils # 7.2 H, Lymphocytes # 1.0 L, Monocytes # 0.8 H Microbiology - Entire Visit 05/27/20 15:59 Venous blood - Left Arm Blood Culture - Preliminary NO GROWTH AT 48 HOURS 05/27/20 15:47 Venous blood - Right Arm Blood Culture - Preliminary NO GROWTH AT 48 HOURS - Physical Exam Vitals: Vital Signs (12 hours) Temp Pulse Resp BP Pulse Ox 05/30/20 10:11 80 05/30/20 04:54 93 L 05/30/20 03:58 99.9 F H 80 23 H 150/70 H 93 L Weight Weight 149 lb 6 oz Most Recent Monitor Data Heart Rate from ECG 83 NIBP 149/68 NIBP BP-Mean 121 Respiration from ECG 18 SpO2 100 Physical Exam: The patient was seen and examined on the day of discharge. Problem - Problem (1) Acute respiratory failure due to COVID-19 Code(s): U07.1 - COVID-19; J96.00 - ACUTE RESPIRATORY FAILURE, UNSP W HYPOXIA OR HYPERCAPNIA Status: Acute (2) COPD exacerbation Code(s): J44.1 - CHRONIC OBSTRUCTIVE PULMONARY DISEASE W (ACUTE) EXACERBATION Status: Acute (3) Pneumonia due to 2019-nCoV Code(s): U07.1 - COVID-19; J12.89 - OTHER VIRAL PNEUMONIA Status: Acute (4) Hypomagnesemia Code(s): E83.42 - HYPOMAGNESEMIA Status: Resolved (5) Hyponatremia Code(s): E87.1 - HYPO-OSMOLALITY AND HYPONATREMIA Status: Resolved (6) Anxiety and depression Code(s): F41.9 - ANXIETY DISORDER, UNSPECIFIED; F32.9 - MAJOR DEPRESSIVE DISORDER, SINGLE EPISODE, UNSPECIFIED Status: Chronic (7) Hypertension Code(s): I10 - ESSENTIAL (PRIMARY) HYPERTENSION Status: Chronic Qualifiers: Hypertension type: essential hypertension Qualified Code(s): I10 - Essential (primary) hypertension (8) History of lung cancer Code(s): Z85.118 - PERSONAL HISTORY OF MALIGNANT NEOPLASM OF BRONCHUS AND LUNG Status: Chronic (9) Chronic respiratory failure with hypoxia, on home O2 therapy Code(s): J96.11 - CHRONIC RESPIRATORY FAILURE WITH HYPOXIA; Z99.81 - DEPENDENCE ON SUPPLEMENTAL OXYGEN Status: Chronic Plan - Discharge Medications Prescriptions: Cefdinir 300 mg PO Q12HR #10 capsule Dexamethasone 6 mg PO DAILY #7 tablet Benzonatate [Tessalon] 100 mg PO Q6H PRN #30 cap PRN Reason: Cough Ascorbic Acid [Vitamin C] 1,000 mg PO DAILY #14 tab Cholecalciferol [Vitamin D3] 1,000 units PO DAILY #30 tab Zinc Sulfate 220 mg PO DAILY #30 cap Home Medications: Medication Instructions Recorded Confirmed Type Amlodipine Besylate [amLODIPine 5 mg PO DAILY 09/21/16 05/28/20 History Besylate] Aspirin Chewable [Aspirin Chewable 81 mg PO DAILY 09/21/16 05/28/20 History Tablet] Budesonide-Formoterol [Symbicort 1 puff INH BID 09/21/16 05/28/20 History 160-4.5] Omeprazole 20 mg PO DAILY 09/21/16 05/28/20 History Tiotropium [Spiriva Handihaler] 18 mcg INH DAILY 09/21/16 05/28/20 History traZODone 100 mg PO HS 09/21/16 05/28/20 History Celecoxib 200 mg PO BID PRN 05/28/20 05/28/20 History Citalopram Hydrobromide [CeleXA] 40 mg PO DAILY 05/28/20 05/28/20 History Mirabegron [Myrbetriq ER] 25 mg PO DAILY 05/28/20 05/28/20 History Ventolin HFA Inhaler 2 puff INH Q6HR PRN 05/28/20 05/28/20 History Ascorbic Acid [Vitamin C] 1,000 mg PO DAILY #14 tab 05/30/20 Rx Benzonatate [Tessalon] 100 mg PO Q6H PRN #30 cap 05/30/20 Rx Cefdinir 300 mg PO Q12HR #10 capsule 05/30/20 Rx Cholecalciferol [Vitamin D3] 1,000 units PO DAILY #30 tab 05/30/20 Rx Dexamethasone 6 mg PO DAILY #7 tablet 05/30/20 Rx Zinc Sulfate 220 mg PO DAILY #30 cap 05/30/20 Rx Allergies: No Known Drug Allergies Allergy (Verified 05/28/20 01:54) - Discharge Instructions Discharge Instructions:: FOLLOW UP WITH PRIMARY DOCTOR IN 1 WEEK Activity:: Activity as Tolerated Nourishment:: Heart Healthy Diet Therapies:: Not Applicable Equipment/Supplies:: Not Applicable IV Therapy:: Not Applicable - Follow up Plan Referrals: PROVIDER,NO PCP [Primary Care Provider] - Disposition: HOME
--- NOTE | 2020-05-30 10:26 | PDOC.HOSPP ---
- Subjective Encounter Date: 05/30/20 Encounter Time: 08:15 Subjective: This morning patient was more short of breath, her oxygen saturation was dropping to 81%, she was requiring higher amount of oxygen, - Objective Vital Signs & Weight: Vital Signs (12 hours) Temp Pulse Resp BP Pulse Ox 05/30/20 10:11 80 05/30/20 04:54 93 L 05/30/20 03:58 99.9 F H 80 23 H 150/70 H 93 L Weight Weight 149 lb 6 oz Most Recent Monitor Data Heart Rate from ECG 83 NIBP 149/68 NIBP BP-Mean 121 Respiration from ECG 18 SpO2 100 I&O: 05/29/20 05/30/20 05/31/20 06:59 06:59 06:59 Intake Total 480 1470 Output Total 400 Balance 80 1470 Result Diagrams: 05/30/20 05:00 05/30/20 04:59 EKG Reviewed by me: Yes (Sinus tachycardia) Hospitalist ROS - Review of Systems Constitutional: reports: weakness, malaise Eyes: denies: pain, vision change, conjunctivae inflammation, eyelid inflammation, redness, other ENT: denies: ear pain, ear discharge, nose pain, nose discharge, nose congest ion, mouth pain, mouth swelling, throat pain, throat swelling, other Respiratory: reports: cough, shortness of breath, SOB with excertion. denies: dry, hemoptysis, pleuritic pain, sputum, wheezing, other Cardiovascular: denies: chest pain, palpitations, orthopnea, paroxysmal noc. dyspnea, edema, light headedness, other Gastrointestinal: denies: nausea, vomiting, abdominal pain, diarrhea, constipation, melena, hematochezia, other Genitourinary: denies: dysuria, frequency, incontinence, hematuria, retention, other Musculoskeletal: denies: neck pain, shoulder pain, arm pain, back pain, hand pain, leg pain, foot pain, other Skin: denies: rash, lesions, yanelis, bruising, other - Medication Medications: Active Medications Generic Name Dose Route Start Last Admin Trade Name Freq PRN Reason Stop Dose Admin Albuterol Sulfate 2 puff 05/27/20 18:52 05/28/20 07:21 Albuterol 200 Puff (6.7gm Inhaler) INH 2 puff Q6H PRN Administration Dyspnea/Wheezing/SOB Amlodipine Besylate 5 mg 05/29/20 09:00 05/30/20 10:11 Amlodipine 5 Mg Tab PO 5 mg DAILY PAIGE Administration Ascorbic Acid 1,000 mg 05/28/20 09:00 05/30/20 10:12 Ascorbic Acid 500 Mg Chewable Tablet PO 1,000 mg DAILY PAIGE Administration Aspirin 81 mg 05/29/20 09:00 05/30/20 10:12 Aspirin Chewable 81 Mg Tab PO 81 mg DAILY PAIGE Administration Cholecalciferol 1,000 units 05/28/20 09:00 05/30/20 10:12 Cholecalciferol 1,000 Units (25 Mcg) Tab PO 1,000 units DAILY PAIGE Administration Citalopram Hydrobromide 40 mg 05/29/20 09:00 05/30/20 10:12 Citalopram 20 Mg Tab PO 40 mg DAILY PAIGE Administration Dexamethasone 6 mg 05/29/20 09:00 05/30/20 10:12 Dexamethasone 4 Mg/Ml Vial SLOW IVP 6 mg DAILY PAIGE Administration Enoxaparin Sodium 40 mg 05/28/20 09:00 05/30/20 10:13 Enoxaparin Sodium 40 Mg/0.4 Ml Syringe SC 40 mg 0900 PAIGE Administration Guaifenesin/Dextromethorphan 15 ml 05/27/20 17:55 05/29/20 09:58 Guaifenesin Dm 100-10/5 Ml Udcup PO 15 ml Q4H PRN Administration Cough Azithromycin 500 mg/ Sodium 250 mls @ 250 mls/hr 05/28/20 16:00 05/29/20 16:46 Chloride IVPB 250 mls 1600 PAIGE Administration Ceftriaxone Sodium 1 gm/ 100 mls @ 200 mls/hr 05/28/20 15:00 05/29/20 15:37 Sodium Chloride IVPB 100 mls 1500 PAIGE Administration Mirabegron 25 mg 05/29/20 09:00 05/30/20 10:13 Mirabegron Er 25 Mg Tab PO 25 mg DAILY PAIGE Administration Mometasone Furoate/Formoterol Fumar 2 puff 05/27/20 18:30 05/30/20 06:27 Mometasone 200 Mcg/Formoterol 5 Mcg 120 Puff Inhaler INH 2 puff BID-RT PAIGE Administration Pantoprazole Sodium 40 mg 05/29/20 09:00 05/30/20 10:13 Pantoprazole 40 Mg Tab PO 40 mg DAILY PAIGE Administration Tiotropium [place] 0 gm 05/30/20 07:00 05/30/20 10:10 Tiotropium [place] 4 Gm Inhaler IH 2 inh DAILY-RT PAIGE Administration Trazodone HCl 100 mg 05/29/20 21:00 05/29/20 21:06 Trazodone Hcl 50 Mg Tab PO 100 mg HS PAIGE Administration Zinc Sulfate 220 mg 05/28/20 09:00 05/30/20 10:13 Zinc Sulfate 220 Mg Cap PO 220 mg DAILY PAIGE Administration - Exam General Appearance: NAD, awake alert Eye: PERRL, anicteric sclera ENT: normocephalic atraumatic, no oropharyngeal lesions Neck: supple, symmetric, no JVD, no thyromegaly Heart: RRR, no murmur, no gallops Heart - other findings: Tachycardia Respiratory: rhonchi, tachypneic, wheezes Respiratory - other findings: Scattered rales noted at base Gastrointestinal: soft, non-tender, non-distended, normal bowel sounds Extremities: no cyanosis, no clubbing, no edema Skin: normal turgor, no lesions Neurological: no focal deficits Musculoskeletal: normal tone, normal strength Psychiatric: normal affect, normal behavior, A&O x 3 Hosp A/P (1) Acute respiratory failure due to COVID-19 Code(s): U07.1 - COVID-19; J96.00 - ACUTE RESPIRATORY FAILURE, UNSP W HYPOXIA OR HYPERCAPNIA Status: Acute (2) COPD exacerbation Code(s): J44.1 - CHRONIC OBSTRUCTIVE PULMONARY DISEASE W (ACUTE) EXACERBATION Status: Acute (3) Pneumonia due to 2019-nCoV Code(s): U07.1 - COVID-19; J12.89 - OTHER VIRAL PNEUMONIA Status: Acute (4) Hypomagnesemia Code(s): E83.42 - HYPOMAGNESEMIA Status: Resolved (5) Hyponatremia Code(s): E87.1 - HYPO-OSMOLALITY AND HYPONATREMIA Status: Resolved (6) Anxiety and depression Code(s): F41.9 - ANXIETY DISORDER, UNSPECIFIED; F32.9 - MAJOR DEPRESSIVE DISORDER, SINGLE EPISODE, UNSPECIFIED Status: Chronic (7) Hypertension Code(s): I10 - ESSENTIAL (PRIMARY) HYPERTENSION Status: Chronic Qualifiers: Hypertension type: essential hypertension Qualified Code(s): I10 - Essential (primary) hypertension (8) History of lung cancer Code(s): Z85.118 - PERSONAL HISTORY OF MALIGNANT NEOPLASM OF BRONCHUS AND LUNG Status: Chronic (9) Chronic respiratory failure with hypoxia, on home O2 therapy Code(s): J96.11 - CHRONIC RESPIRATORY FAILURE WITH HYPOXIA; Z99.81 - DEPENDENCE ON SUPPLEMENTAL OXYGEN Status: Chronic - Plan old records reviewed/req, continue antibiotics, respiratory therapy, DVT proph w/lovenox Continue empiric Rocephin azithromycin Patient did not qualify for remdesivir because need for BiPAP on admission, Patient has deterioration and requiring higher than usual oxygen so we will closely monitor, Today we will give her convalescent plasma We will repeat labs tomorrow Wean off oxygen as tolerated Continue dexamethasone, and vitamin supplementation Patient is not ready for discharge yet
[2020-05-30] MEDS: cefTRIAXone\\ROCEPHIN 1 GM in Sodium Chloride 0.9% 100 ML IVPB SCH (14:45)
[2020-05-30] MEDS: Azithromycin 500 MG in Sodium Chloride 0.9% 250 ML 250 ML IVPB SCH (15:42)
[2020-05-30] MEDS: traZODone HCl 50 MG TAB PO SCH (21:33)
[2020-05-31] MEDS: Mometasone 200 MCG/Formoterol 5 MCG 120 PUFF INHALER INH SCH (05:48)
[2020-05-31] MEDS: Tiotropium Bromide 4 GM INHALER IH SCH ×2 (05:52→05:53)
[2020-05-31] MEDS: Amlodipine 5 MG TAB PO SCH (07:29)
[2020-05-31] MEDS: Aspirin Chewable 81 MG TAB PO SCH (07:30)
[2020-05-31] MEDS: Cholecalciferol 1,000 UNITS (25 MCG) TAB PO SCH (07:30)
[2020-05-31] MEDS: Ascorbic Acid 500 mg Chewable Tablet PO SCH (07:30)
[2020-05-31] MEDS: Citalopram 20 MG TAB PO SCH (07:30)
[2020-05-31] MEDS: Dexamethasone 4 mg/ml Vial SLOW IVP SCH (07:30)
[2020-05-31] MEDS: Enoxaparin Sodium 40 MG/0.4 ML SYRINGE SC SCH (07:30)
[2020-05-31] MEDS: Zinc Sulfate 220 MG CAP PO SCH (07:31)
[2020-05-31 07:53] VITALS: BP 145/65; TEMP 97.9
--- NOTE | 2020-05-31 09:13 | PDOC.DS.DS ---
Provider - Provider Date of Admission: 05/27/20 17:14 Date of Discharge: 05/31/20 Admitting Provider: Danielle Lopez MD Consultations: Pulmonary Primary Care Physician: TERRI PCP PROVIDER Course - Hospital Course Hospital Course: Patient was admitted on May 27, 2020, please see my HPI for more detail, patient was having increasing shortness of breath, in emergency room patient required BiPAP so she was not a candidate for remdesivir therapy, subsequently patient did not require any BiPAP and she was transferred to telemetry floor, patient was treated with an empiric antibiotic therapy with Rocephin and azithromycin, she was given respiratory therapy, her home medication was reconciled, we started dexamethasone and vitamin supplementation, patient has chronic respiratory failure and she has home oxygen, patient is up to her baseline, today patient expressing her wish to go home, she feels up to her normal, clinically also patient is doing better, we will send her on oral steroid as well as oral antibiotic therapy, red flag symptoms of COVID-19 discussed with the patient in that case she needs to return to emergency room. yesterday she suddenly desaturated, her discharge was delayed to today. Today she is eager to go home. she appears comfortable, and her lungs sound clear. Resuscitation Status: 05/27/20 17:26 Resuscitation Status Routine Resuscitation Status: FULL: Full Resuscitation - Labs Lab Results: 05/30/20 05:00 05/30/20 04:59 Abnormal Lab Results - Last 48 hrs 05/30/20 04:59: C-Reactive Protein 4.53 H 05/30/20 05:00: Lactate Dehydrogenase 282 H 05/30/20 05:00: Hgb 11.3 L, Hct 35.8 L, MCHC 31.7 L, MPV 7.1 L, Neutrophils % 80.4 H, Lymphocytes % 10.6 L, Neutrophils # 7.2 H, Lymphocytes # 1.0 L, Mo nocytes # 0.8 H Microbiology - Entire Visit 05/27/20 15:59 Venous blood - Left Arm Blood Culture - Preliminary NO GROWTH AT 48 HOURS 05/27/20 15:47 Venous blood - Right Arm Blood Culture - Preliminary NO GROWTH AT 48 HOURS - Physical Exam Vitals: Vital Signs (12 hours) Temp Pulse Pulse Resp BP BP Pulse Ox 05/31/20 07:30 97.9 F 70 20 145/65 H 97 05/31/20 07:29 73 05/31/20 03:30 98.2 F 73 18 133/59 L 100 05/30/20 23:55 97.0 F L 71 71 18 140/61 140/61 98 05/30/20 21:51 98.2 F 75 20 146/63 H 97 05/30/20 21:29 98.3 F 81 20 131/81 98 05/30/20 21:24 97 Weight Weight 149 lb 6 oz Most Recent Monitor Data Heart Rate from ECG 83 NIBP 149/68 NIBP BP-Mean 121 Respiration from ECG 18 SpO2 100 Physical Exam: The patient was seen and examined on the day of discharge. Plan - Discharge Medications Prescriptions: Cefdinir 300 mg PO Q12HR #10 capsule Budesonide/Formoterol Fumarate [Budesonide-Formoterol 160-4.5] 10.2 gm IH BID #1 hfa.aer.ad Dexamethasone 6 mg PO DAILY #7 tablet Benzonatate [Tessalon] 100 mg PO Q6H PRN #30 cap PRN Reason: Cough Ascorbic Acid [Vitamin C] 1,000 mg PO DAILY #14 tab Cholecalciferol [Vitamin D3] 1,000 units PO DAILY #30 tab Zinc Sulfate 220 mg PO DAILY #30 cap Home Medications: Medication Instructions Recorded Confirmed Type Amlodipine Besylate [amLODIPine 5 mg PO DAILY 09/21/16 05/28/20 History Besylate] Aspirin Chewable [Aspirin Chewable 81 mg PO DAILY 09/21/16 05/28/20 History Tablet] Budesonide-Formoterol [Symbicort 1 puff INH BID 09/21/16 05/28/20 History 160-4.5] Omeprazole 20 mg PO DAILY 09/21/16 05/28/20 History Tiotropium [Spiriva Handihaler] 18 mcg INH DAILY 09/21/16 05/28/20 History traZODone 100 mg PO HS 09/21/16 05/28/20 History Celecoxib 200 mg PO BID PRN 05/28/20 05/28/20 History Citalopram Hydrobromide [CeleXA] 40 mg PO DAILY 05/28/20 05/28/20 History Mirabegron [Myrbetriq ER] 25 mg PO DAILY 05/28/20 05/28/20 History Ventolin HFA Inhaler 2 puff INH Q6HR PRN 05/28/20 05/28/20 History Ascorbic Acid [Vitamin C] 1,000 mg PO DAILY #14 tab 05/30/20 Rx Benzonatate [Tessalon] 100 mg PO Q6H PRN #30 cap 05/30/20 Rx Cefdinir 300 mg PO Q12HR #10 capsule 05/30/20 Rx Cholecalciferol [Vitamin D3] 1,000 units PO DAILY #30 tab 05/30/20 Rx Dexamethasone 6 mg PO DAILY #7 tablet 05/30/20 Rx Zinc Sulfate 220 mg PO DAILY #30 cap 05/30/20 Rx Budesonide-Formoterol [Symbicort 1 puff INH BID #0 05/31/20 Rx 160-4.5] Budesonide/Formoterol Fumarate 10.2 gm IH BID #1 hfa.aer.ad 05/31/20 Rx [Budesonide-Formoterol 160-4.5] Allergies: No Known Drug Allergies Allergy (Verified 05/28/20 01:54) - Discharge Instructions Discharge Instructions:: FOLLOW UP WITH PRIMARY DOCTOR IN 1 WEEK Activity:: Activity as Tolerated Nourishment:: Heart Healthy Diet Therapies:: Not Applicable Equipment/Supplies:: Not Applicable IV Therapy:: Not Applicable - Follow up Plan Referrals: PROVIDER,NO PCP [Primary Care Provider] - Disposition: HOME Quality - Care Measures CORE MEASURES:: N/A
[2020-05-31] MEDS ORDERED: Mometasone 200 MCG/Formoterol 5 MCG 120 PUFF INHALER INH SCH (18:30)
[2020-05-31] MEDS ORDERED: Non-Formulary Item 1 EACH (Budesonide-Formoterol [Symbicort 160-4.5] 160 MG/4.5 MG Aer) INH SCH (21:00)
--- NOTE | 2020-06-02 07:11 | PQF ---
CLINICAL DOCUMENTATION CLARIFICATION FORM: Dear : Catia Knutson Date / Time: 06/02/20 4502 Please exercise your independent, professional judgment in responding to the clarification form. Clinical indicators are provided on the bottom of this form for your review Please check appropriate box(es): [ y ] Sepsis due to Covid 19 Pneumonia [ ] Severe sepsis due to Covid 19 Pneumonia with Acute Respiratory Failure [ ] Localized infection without sepsis [ ] Other diagnosis, please specify [ ] Unable to determine In addition, please specify: Present on Admission (POA): [ ] Yes [ ] No [ ] Unable to determine Physician Signature: Date/Time: For continuity of documentation, please document condition throughout progress notes and discharge summary. Thank You To be completed by CDI/Coding staff for physician review: Present Clinical Indicators - Signs / Symptoms / Labs Results and Location in Medical Record [x] Lactic acid 1.1, WBC 6.2; 3.3, Neutrophils 76.1; 72.9, Plt count 148; 164 Laboratory 05/27-05/28 [x] Blood culture: No growth in 5 days Microbiology 05/27 [x] BP 123/59, Pulse 94, Resp 33, Temp 98.1 Vital signs 05/27 [x] SIRS scoring: Yes, pt did meet criteria ED note sp2 05/27 [x] Pt increasing SOB, was also having fever on and off yesterday, pt was also tachypeneic H&P p1 05/27 Dr Lopez [x] Acute respiratory failure H&P p4 05/27 Dr Lopez [x] Covid Pneumonia H&P p4 05/27 Dr Lopez [x] Chest Xray: There is mild haziness with reticulonodular densities at left lung base Chest Xray 05/27 Present Risk Factors Results and Location in Medical Record [x] 74 year-old Female H&P p1 05/27 Dr Lopez [x] COPD H&P p3 05/27 Dr Lopez [x] Hx of lung cancer H&P p3 05/27 Dr Lopez [x] Covid Pneumonia H&P p4 05/27 Dr Lopez [x] Former Smoker ED Notes 05/27 Present Treatments Results and Location in Medical Record [x] IV Azithromax 500 mg MAR 05/27 [x] IV Rocephin 1 gm AUG 06 [x] IVF NS 1L MAR 05/27 [x] Convalescent plasma Blood bank 05/30 [x] Sepsis Activation ED note sp2 05/27 [x] Pulmo Consult Consult Dr Soares 05/28 [x] Isolation H&P p4 05/27 Dr Lopez [x] Pulmonology Consult Consult 05/27 CDS/Hardware Installation Coordinator Signature: Phoebe Vianey Irelandwillietiny Phone #: [phone] Date/Time: 06/02/20 0710 This is a permanent part of the Medical Record [id number]
--- NOTE | 2020-06-07 17:39 | PQF ---
CLINICAL DOCUMENTATION CLARIFICATION FORM: Dear : Catia Knutson Date / Time: 06/07/20 9551 Please exercise your independent, professional judgment in responding to the clarification form. Clinical indicators are provided on the bottom of this form for your review Based on the clinical indicators on admit, can you determine if Sepsis was present at the time of admission? Diagnosis: Sepsis Present on Admission (POA): [ ] Yes [ ] No [ y ] Unable to determine Physician Signature: Date/Time: For continuity of documentation, please document condition throughout progress notes and discharge summary. Thank You. To be completed by CDI/Coding staff for physician review: Present Clinical Indicators - Signs / Symptoms / Labs Results and Location in Medical Record [x] Lactic acid 1.1, WBC 6.2; 3.3, Neutrophils 76.1; 72.9, Plt count 148; 164 Laboratory 05/27-05/28 [x] Blood culture: No growth in 5 days Microbiology 05/27 [x] BP 123/59, Pulse 94, Resp 33, Temp 98.1 Vital signs 05/27 [x] SIRS scoring: Yes, pt did meet criteria ED note sp2 05/27 [x] Pt increasing SOB, was also having fever on and off yesterday, pt was also tachypeneic H&P p1 05/27 Dr Lopez [x] Acute respiratory failure H&P p4 05/27 Dr Lopez [x] Covid Pneumonia H&P p4 05/27 Dr Lopez [x] Chest Xray: There is mild haziness with reticulonodular densities at left lung base Chest Xray 05/27 Present Risk Factors Results and Location in Medical Record [x] 74 year-old Female H&P p1 05/27 Dr Lopez [x] COPD H&P p3 05/27 Dr Lopez [x] Hx of lung cancer H&P p3 05/27 Dr Lopez [x] Covid Pneumonia H&P p4 05/27 Dr Lopez [x] Former Smoker ED Notes 05/27 Present Treatments Results and Location in Medical Record [x] IV Azithromax 500 mg MAR 05/27 [x] IV Rocephin 1 gm AUG 06 [x] IVF NS 1L AUG 06 [x] Convalescent plasma Blood bank 05/30 [x] Sepsis Activation ED note sp2 05/27 [x] Pulmo Consult Consult Dr Soares 05/28 [x] Isolation H&P p4 05/27 Dr Lopez [x] Pulmonology Consult Consult 05/27 CDS/Case Finishing Machine Adjuster Signature: Phoebe Winters Hayley Phone #: [phone] Date/Time: 06/07/2020 0833 This is a permanent part of the Medical Record [facility]
== END 2020-05-31 13:00 | disposition home or self-care (01) | DRG 177 ==
LOC: ERS 14:46 → IMCU/EMU 17:14 → 2SW 05-28 14:36
PROVIDERS: ADMIT Internal Medicine; ATTEND Internal Medicine
PROC: 8E0ZXY6 Isolation (ICD-10-PCS; 2020-05-27)
PROC: 5A09357 Assistance with Respiratory Ventilation, Less than 24 Consecutive Hours, Continuous Positive Airway Pressure (ICD-10-PCS; 2020-05-27)
PROC: XW13325 Transfusion of Convalescent Plasma (Nonautologous) into Peripheral Vein, Percutaneous Approach, New Technology Group 5 (ICD-10-PCS; principal; 2020-05-30)
DX: U07.1 COVID-19 (principal); J96.01 Acute respiratory failure with hypoxia; J12.82 Pneumonia due to coronavirus disease 2019; J96.21 Acute and chronic respiratory failure with hypoxia; A41.89 Other specified sepsis; J44.1 Chronic obstructive pulmonary disease with (acute) exacerbation; J44.0 Chronic obstructive pulmonary disease with (acute) lower respiratory infection; E87.1 Hypo-osmolality and hyponatremia; I10 Essential (primary) hypertension; F41.9 Anxiety disorder, unspecified; F32.9 Major depressive disorder, single episode, unspecified; E83.42 Hypomagnesemia; J40 Bronchitis, not specified as acute or chronic; Z90.49 Acquired absence of other specified parts of digestive tract; Z87.891 Personal history of nicotine dependence; Z79.899 Other long term (current) drug therapy; Z79.82 Long term (current) use of aspirin; Z85.118 Personal history of other malignant neoplasm of bronchus and lung; Z99.81 Dependence on supplemental oxygen
CPT/HCPCS: 0240U; 36415; 36430; 71045; 80048; 80053; 81003; 82550; 82728; 83605; 83615; 83735; 83880; 84484; 85025; 86140; 86850; 86900; 86901; 87040; 93005; 94660; 96365; 96366; 96368; 96375; 96376; J0456; J0696; J1100; J1650; J2060; J2405; J2930; J3475; J3490; J7050; P9017; S0028

== ENCOUNTER 2021-09-22 06:09 | Inpatient (IN) | payer BC, MEDICARE ==
[2021-09-22] MEDS ORDERED: Lorazepam 2 MG/ML VIAL ONE (06:13)
[2021-09-22] MEDS ORDERED: Succinylcholine 200 MG/10 ml SYRINGE FS ONE (06:18)
[2021-09-22] MEDS ORDERED: Albuterol Sulfate 2.5 mg/0.5 ml Neb ONE (06:19)
[2021-09-22] MEDS ORDERED: Albuterol Sulfate 2.5 mg/3 ml Neb ONE (06:19)
[2021-09-22 06:31] LABS: #Basophils 0.1 thou/uL (0.0-0.2); #Eosinphils 0.1 thou/uL (0.0-0.7); #Lymphocytes 3.6 thou/uL (1.20-3.40); #Monocytes 0.5 thou/uL (0.11-0.59); #Neutrophils 13.7 thou/uL (1.40-6.50); %Basophils 0.3 % (0.0-1.0); %Eosinophils 0.4 % (0.0-10.0); %Lymphocytes 20.1 % (21.0-51.0); %Monocytes 2.8 % (0.0-10.0); %Neutrophils 76.4 % (42.0-75.0); Hemoglobin 14.3 g/dL (12.0-16.0); Mean Corpuscular HGB CONC 32.3 g/dL (32.0-36.0); Mean Corpuscular Hemoglobin 29.5 pg (27.0-31.0); Mean Corpuscular Volume 91.5 fL (78.0-98.0); Mean Platelet Volume 6.4 fL (7.4-10.4); Platelet Count 454 thou/uL (130-400); RBC Distribution Width 13.6 % (11.5-14.5); Red Blood Cell (RBC) Count 4.83 mill/uL (4.20-5.40)
[2021-09-22 06:34] LABS: Actual Bicarbonate (HCO3a) 21.6 mEq/L (22-28); Analyzer IN Cardio ER; Base Excess (BEa) -3.7 mEq/L (-2.0 to +3.0); CO2 Tension 40.1 mmHg (35.0-45.0); Calcium, Ionized (arterial) 1.27 mmol/L (1.12-1.30); Hemoglobin (Hb) 13.9 g/dL (12.0-16.0); O2 Tension (PaO2), arterial 62.6 mmHg (> 70.0); Potassium - ABG Lab 4.32 mmol/L (3.70-5.30); pH, Arterial 7.35 (7.35-7.45)
[2021-09-22 06:36] LABS: ALV-art Gradient 243.775 mmHg (0-20); Puncture Site RRA
[2021-09-22] MEDS ORDERED: Midazolam HCl 5 mg/ml Vial ONE (06:53)
[2021-09-22 06:55] LABS: ALT (SGPT) 14 U/L (8-55); AST (SGOT) 18 U/L (5-34); Albumin 3.9 g/dL (3.4-4.8); Alkaline Phosphatase 90 U/L (40-110); Anion Gap 19 mmol/L (10-20); BUN (Urea Nitrogen) 18 mg/dL (9.8-20.1); Bilirubin, Total 0.5 mg/dL (0.2-1.2); Calc. Creatinine Clearance 0 mL/min (70-130); Calcium 9.7 mg/dL (7.8-10.44); Carbon Dioxide 21 mmol/L (23-31); Chloride 104 mmol/L (98-107); Globulin 2.8 g/dL (2.4-3.5); Glucose 201 mg/dL (83-110); Potassium 5.2 mmol/L (3.5-5.1); Protein, Total 6.7 g/dL (5.8-8.1); Sodium 139 mmol/L (136-145)
[2021-09-22] MEDS ORDERED: Cefepime 2 GM VIAL ONE (07:07)
[2021-09-22] MEDS ORDERED: Vecuronium 10 MG VIAL ONE (07:17)
[2021-09-22] MEDS ORDERED: Sterile Water 10 ML ONE (07:21)
[2021-09-22] MEDS ORDERED: Norepinephrine 4 MG/4 ML VIAL ONE (07:26)
[2021-09-22] MEDS ORDERED: Norepinephrine 8 MG/0.9% NS 250 ML IVPB SCH (07:30)
[2021-09-22 08:12] LABS: Analyzer IN Cardio ER; Base Excess (BEa) -5.6 mEq/L (-2.0 to +3.0); Calcium, Ionized (arterial) 1.19 mmol/L (1.12-1.30); Carboxyhemoglobin (COHb) 0.5 gm% (0.0-3.0); Hemoglobin (Hb) 11.7 g/dL (12.0-16.0); O2 Tension (PaO2), arterial 66.2 mmHg (> 70.0); Potassium - ABG Lab 4.06 mmol/L (3.70-5.30)
[2021-09-22 08:13] LABS: CO2 Tension 60.7 mmHg (35.0-45.0); Puncture Site RRA
[2021-09-22 08:14] LABS: ALV-art Gradient 143.125 mmHg (0-20)
[2021-09-22] MEDS ORDERED: Norepinephrine 8 MG/0.9% NS 250 ML IVPB PRN (09:01)
[2021-09-22 09:12] LABS: Lactic Acid 2.1 mmol/L (0.5-2.2)
[2021-09-22 09:32] LABS: SARS-CoV-2 NAA Rapid Test Not Detected (NotDetected)
[2021-09-22] MEDS: Lorazepam 2 MG/ML VIAL SLOW IVP PRN ×3 (09:39→14:45)
[2021-09-22] MEDS ORDERED: Ventilator Sedation Protocol 1 EACH FS SCH (10:00)
[2021-09-22] MEDS ORDERED: Aspirin 325 MG TAB PER TUBE SCH (10:00)
[2021-09-22] MEDS ORDERED: Dextrose 50% Abboject 50 ML SYRINGE SLOW IVP PRN (10:13)
[2021-09-22] MEDS ORDERED: Dextrose 5% in Water 1,000 ML IV PRN (10:13)
[2021-09-22 10:19] LABS: Actual Bicarbonate (HCO3a) 19.2 mEq/L (22-28); Base Excess (BEa) -7.8 mEq/L (-2.0 to +3.0); Calcium, Ionized (arterial) 1.12 mmol/L (1.12-1.30); Carboxyhemoglobin (COHb) 0.7 gm% (0.0-3.0); Hemoglobin (Hb) 11.9 g/dL (12.0-16.0); O2 Tension (PaO2), arterial 73.6 mmHg (> 70.0); Potassium - ABG Lab 4.04 mmol/L (3.70-5.30)
[2021-09-22 10:29] LABS: Puncture Site RRA; pH, Arterial 7.25 (7.35-7.45)
[2021-09-22] MEDS ORDERED: Propofol BOLUS 1,000 MG/100 ML VIAL IV PRN (10:30)
[2021-09-22] MEDS ORDERED: Fentanyl BOLUS 250 ML IVPB PRN (10:30)
[2021-09-22] MEDS ORDERED: DISCONTINUE PREVIOUS NARCOTIC PAIN MEDICATIONS AND BENZODIAZEPINES FS SCH (10:30)
[2021-09-22] MEDS: Sodium Chloride 0.9% 1,000 ML IV SCH ×2 (10:38→19:39)
[2021-09-22 11:08] LABS: Troponin I 2.497 ng/mL (< 0.028)
[2021-09-22] MEDS ORDERED: Enoxaparin Sodium 80 MG/0.8 ML SYRINGE SC SCH (11:15)
[2021-09-22] MEDS: methylPREDNISolone Sod Succ 40 MG VIAL IVP SCH ×2 (13:47→17:10)
[2021-09-22] MEDS: Vancomycin 1 GM in Premix Bag 1 BAG IVPB SCH (13:47)
[2021-09-22 13:57] LABS: Critical Call Chem Troponin I RESULT DECREASING; Troponin I 2.441 ng/mL (< 0.028)
[2021-09-22] MEDS: fentaNYL Citrate-0.9 % NaCl/PF 100 ML IV SCH (17:11)
[2021-09-22 17:25] LABS: Legionella Urinary Ag Negative (Negative); Strep pneumo Urine Ag NEGATIVE (NEGATIVE)
[2021-09-22] MEDS: HumaLOG 300 UNITS/3 ML VIAL SC PRN ×2 (17:27→20:25)
[2021-09-22] MEDS: Arformoterol 15 MCG/2 ML NEB NEB SCH (19:14)
[2021-09-22] MEDS: Budesonide 0.5 MG/2 ML NEB NEB SCH (19:14)
[2021-09-22] MEDS: Enoxaparin Sodium 80 MG/0.8 ML SYRINGE SC SCH (20:55)
[2021-09-22] MEDS: Famotidine/PF 20 mg/2ml Vial SLOW IVP SCH (20:56)
[2021-09-22] MEDS ORDERED: Enoxaparin Sodium 40 MG/0.4 ML SYRINGE SC SCH (21:00)
[2021-09-22] MEDS ORDERED: Cefepime 2 GM in Sodium Chloride 0.9% 100 ML IVPB SCH (21:00)
[2021-09-23] MEDS: HumaLOG 300 UNITS/3 ML VIAL SC PRN ×5 (00:17→23:45)
[2021-09-23] MEDS: methylPREDNISolone Sod Succ 40 MG VIAL IVP SCH ×5 (00:18→23:43)
[2021-09-23 04:02] LABS: Hemoglobin A1c 5.8 % (4.0-6.0)
[2021-09-23 04:16] LABS: ALT (SGPT) 13 U/L (8-55); AST (SGOT) 20 U/L (5-34); Albumin 3.2 g/dL (3.4-4.8); Alkaline Phosphatase 66 U/L (40-110); Anion Gap 12 mmol/L (10-20); BUN (Urea Nitrogen) 12 mg/dL (9.8-20.1); Bilirubin, Total 0.2 mg/dL (0.2-1.2); Calc. Creatinine Clearance 70 mL/min (70-130); Calcium 8.8 mg/dL (7.8-10.44); Carbon Dioxide 22 mmol/L (23-31); Cardiac Risk 2.4 (Less than 4.5); Chloride 112 mmol/L (98-107); Cholesterol 85 mg/dl (< 200 Desired); Globulin 2.8 g/dL (2.4-3.5); Glucose 203 mg/dL (83-110); HDL Cholesterol 35 mg/dL (>60 Neg Risk); LDL Cholesterol, Calculated 30 mg/dL; Potassium 4.9 mmol/L (3.5-5.1); Sodium 141 mmol/L (136-145); Triglycerides 102 mg/dL (Less than 150)
[2021-09-23 04:25] LABS: Mean Corpuscular Hemoglobin 28.9 pg (27.0-31.0); Mean Corpuscular Volume 93.2 fL (78.0-98.0); Mean Platelet Volume 5.9 fL (7.4-10.4); Platelet Count 389 thou/uL (130-400); RBC Distribution Width 13.9 % (11.5-14.5); Red Blood Cell (RBC) Count 3.82 mill/uL (4.20-5.40); White Blood Cell (WBC) Count 42.3 thou/uL (4.8-10.8)
[2021-09-23] MEDS: Propofol 1,000 MG/100 ML VIAL IV PRN ×2 (04:48→22:30)
[2021-09-23] MEDS: Sodium Chloride 0.9% 1,000 ML IV SCH ×3 (04:48→22:34)
[2021-09-23 04:56] LABS: Band 34 % (5-11); Lymphocytes 4 % (21-51); MDiff Complete? YES; Metamyelocyte 6 % (0-0); Monocytes 1 % (0-10); Neutrophil 55 % (42-75)
[2021-09-23] MEDS: Budesonide 0.5 MG/2 ML NEB NEB SCH ×2 (05:30→19:13)
[2021-09-23] MEDS: Arformoterol 15 MCG/2 ML NEB NEB SCH ×2 (05:30→19:13)
[2021-09-23] MEDS: fentaNYL Citrate-0.9 % NaCl/PF 100 ML IV SCH ×2 (05:35→18:49)
[2021-09-23] MEDS ORDERED: Meropenem 1 GM in Sodium Chloride 0.9% 100 ML IVPB SCH (06:00)
[2021-09-23 06:01] LABS: Lactic Acid 1.5 mmol/L (0.5-2.2)
[2021-09-23 07:18] LABS: Base Excess (BEa) -2.9 mEq/L (-2.0 to +3.0); CO2 Tension 49.8 mmHg (35.0-45.0); Calcium, Ionized (arterial) 1.23 mmol/L (1.12-1.30); Carboxyhemoglobin (COHb) 0.8 gm% (0.0-3.0); O2 Tension (PaO2), arterial 88.9 mmHg (> 70.0); Potassium - ABG Lab 4.45 mmol/L (3.70-5.30)
[2021-09-23 07:41] LABS: Puncture Site RRA
[2021-09-23] MEDS: Enoxaparin Sodium 80 MG/0.8 ML SYRINGE SC SCH ×2 (09:17→20:24)
[2021-09-23] MEDS: Aspirin Chewable 81 MG TAB PER TUBE SCH (09:17)
[2021-09-23] MEDS: Vancomycin 1 GM in Premix Bag 1 BAG IVPB SCH (13:16)
[2021-09-23] MEDS: Meropenem 1 GM in Sodium Chloride 0.9% 100 ML IVPB SCH ×2 (14:40→22:31)
[2021-09-23] MEDS ORDERED: Budesonide 0.5 MG/2 ML NEB INH SCH (18:30)
[2021-09-23] MEDS: Famotidine/PF 20 mg/2ml Vial SLOW IVP SCH (20:24)
[2021-09-23] MEDS: Montelukast Sodium 10 mg Tablet PO SCH (20:24)
[2021-09-24] MEDS: Vecuronium 10 MG VIAL IVP PRN ×5 (00:21→22:20)
[2021-09-24 04:13] LABS: Band 44 % (5-11); Hemoglobin 9.5 g/dL (12.0-16.0); Lymphocytes 2 % (21-51); MDiff Complete? YES; Mean Corpuscular HGB CONC 31.6 g/dL (32.0-36.0); Mean Corpuscular Hemoglobin 29.6 pg (27.0-31.0); Mean Corpuscular Volume 93.6 fL (78.0-98.0); Mean Platelet Volume 6.6 fL (7.4-10.4); Monocytes 10 % (0-10); Neutrophil 44 % (42-75); Platelet Count 240 thou/uL (130-400); Platelet Morphology Comment Appears Adequate; RBC Distribution Width 13.8 % (11.5-14.5); RBC Morphology Normal; Red Blood Cell (RBC) Count 3.21 mill/uL (4.20-5.40); White Blood Cell (WBC) Count 21.2 thou/uL (4.8-10.8)
[2021-09-24 04:15] LABS: ALT (SGPT) 13 U/L (8-55); AST (SGOT) 12 U/L (5-34); Albumin 2.9 g/dL (3.4-4.8); Alkaline Phosphatase 56 U/L (40-110); Anion Gap 10 mmol/L (10-20); BUN (Urea Nitrogen) 13 mg/dL (9.8-20.1); Bilirubin, Total Less than 0.2 mg/dL (0.2-1.2); Calc. Creatinine Clearance 76 mL/min (70-130); Calcium 8.7 mg/dL (7.8-10.44); Carbon Dioxide 25 mmol/L (23-31); Chloride 111 mmol/L (98-107); Globulin 2.6 g/dL (2.4-3.5); Glucose 185 mg/dL (83-110); Potassium 4.6 mmol/L (3.5-5.1); Protein, Total 5.5 g/dL (5.8-8.1); Sodium 141 mmol/L (136-145)
[2021-09-24] MEDS: HumaLOG 300 UNITS/3 ML VIAL SC PRN ×5 (05:48→20:13)
[2021-09-24] MEDS: Meropenem 1 GM in Sodium Chloride 0.9% 100 ML IVPB SCH (05:56)
[2021-09-24] MEDS: methylPREDNISolone Sod Succ 40 MG VIAL IVP SCH ×3 (05:57→18:32)
[2021-09-24] MEDS: fentaNYL Citrate-0.9 % NaCl/PF 100 ML IV SCH ×2 (06:48→19:39)
[2021-09-24] MEDS: Arformoterol 15 MCG/2 ML NEB NEB SCH ×2 (06:50→18:35)
[2021-09-24 07:35] LABS: Base Excess (BEa) -0.2 mEq/L (-2.0 to +3.0); CO2 Tension 42.8 mmHg (35.0-45.0); Calcium, Ionized (arterial) 1.23 mmol/L (1.12-1.30); Carboxyhemoglobin (COHb) 0.1 gm% (0.0-3.0); Hemoglobin (Hb) 10.2 g/dL (12.0-16.0); O2 Tension (PaO2), arterial 117.9 mmHg (> 70.0); Potassium - ABG Lab 4.61 mmol/L (3.70-5.30); pH, Arterial 7.38 (7.35-7.45)
[2021-09-24 07:53] LABS: Puncture Site RRA
[2021-09-24] MEDS: Budesonide 0.5 MG/2 ML NEB NEB SCH ×2 (07:55→18:36)
[2021-09-24] MEDS: Propofol 1,000 MG/100 ML VIAL IV PRN ×3 (08:13→19:56)
[2021-09-24] MEDS: Aspirin Chewable 81 MG TAB PER TUBE SCH (09:45)
[2021-09-24] MEDS: Enoxaparin Sodium 80 MG/0.8 ML SYRINGE SC SCH ×2 (09:45→19:57)
[2021-09-24] MEDS: Vancomycin 1 GM in Premix Bag 1 BAG IVPB SCH (10:31)
[2021-09-24 10:37] LABS: Vancomycin, Trough 5.3 ug/mL
[2021-09-24] MEDS ORDERED: Metoclopramide HCl 10 MG/2 ML VIAL IVP SCH (12:00)
[2021-09-24] MEDS: cefTRIAXone\\ROCEPHIN 2 GM in Sodium Chloride 0.9% 100 ML IVPB SCH (12:51)
[2021-09-24] MEDS: Lorazepam 2 MG/ML VIAL SLOW IVP PRN ×3 (13:26→22:20)
[2021-09-24] MEDS: Sodium Chloride 0.9% 1,000 ML IV SCH (16:46)
[2021-09-24] MEDS: Famotidine/PF 20 mg/2ml Vial SLOW IVP SCH (19:57)
[2021-09-24] MEDS: Montelukast Sodium 10 mg Tablet PO SCH (20:02)
[2021-09-24] MEDS ORDERED: Vancomycin 1 GM in Premix Bag 1 BAG IVPB SCH (23:00)
[2021-09-25] MEDS: methylPREDNISolone Sod Succ 40 MG VIAL IVP SCH ×5 (00:09→23:30)
[2021-09-25] MEDS: HumaLOG 300 UNITS/3 ML VIAL SC PRN ×5 (00:24→22:11)
[2021-09-25 04:24] LABS: Band 11 % (5-11); Hemoglobin 9.5 g/dL (12.0-16.0); Lymphocytes 5 % (21-51); MDiff Complete? YES; Mean Corpuscular HGB CONC 31.1 g/dL (32.0-36.0); Mean Corpuscular Hemoglobin 29.3 pg (27.0-31.0); Mean Corpuscular Volume 94.2 fL (78.0-98.0); Mean Platelet Volume 7.1 fL (7.4-10.4); Metamyelocyte 1 % (0-0); Monocytes 1 % (0-10); Neutrophil 82 % (42-75); Platelet Count 234 thou/uL (130-400); Platelet Morphology Comment Appears Adequate; RBC Distribution Width 13.7 % (11.5-14.5); RBC Morphology Normal; Red Blood Cell (RBC) Count 3.25 mill/uL (4.20-5.40); White Blood Cell (WBC) Count 16.4 thou/uL (4.8-10.8)
[2021-09-25 04:26] LABS: ALT (SGPT) 12 U/L (8-55); AST (SGOT) 7 U/L (5-34); Albumin 2.9 g/dL (3.4-4.8); Alkaline Phosphatase 45 U/L (40-110); Anion Gap 13 mmol/L (10-20); BUN (Urea Nitrogen) 18 mg/dL (9.8-20.1); Bilirubin, Total Less than 0.2 mg/dL (0.2-1.2); Calc. Creatinine Clearance 78 mL/min (70-130); Calcium 8.6 mg/dL (7.8-10.44); Carbon Dioxide 26 mmol/L (23-31); Chloride 111 mmol/L (98-107); Globulin 2.6 g/dL (2.4-3.5); Glucose 191 mg/dL (83-110); Potassium 4.5 mmol/L (3.5-5.1); Protein, Total 5.5 g/dL (5.8-8.1); Sodium 145 mmol/L (136-145)
[2021-09-25] MEDS: Propofol 1,000 MG/100 ML VIAL IV PRN ×3 (04:39→17:37)
[2021-09-25] MEDS: Sodium Chloride 0.9% 1,000 ML IV SCH (05:42)
[2021-09-25 07:16] LABS: Actual Bicarbonate (HCO3a) 27.1 mEq/L (22-28); Base Excess (BEa) 1.4 mEq/L (-2.0 to +3.0); CO2 Tension 48.1 mmHg (35.0-45.0); Calcium, Ionized (arterial) 1.24 mmol/L (1.12-1.30); Carboxyhemoglobin (COHb) 0.3 gm% (0.0-3.0); Hemoglobin (Hb) 10.2 g/dL (12.0-16.0); O2 Tension (PaO2), arterial 100.8 mmHg (> 70.0); Potassium - ABG Lab 4.45 mmol/L (3.70-5.30); pH, Arterial 7.37 (7.35-7.45)
[2021-09-25 07:32] LABS: ALV-art Gradient 124.275 mmHg (0-20); Puncture Site RBA
[2021-09-25] MEDS: Arformoterol 15 MCG/2 ML NEB NEB SCH ×2 (07:34→18:24)
[2021-09-25] MEDS: Budesonide 0.5 MG/2 ML NEB NEB SCH ×2 (07:34→18:18)
[2021-09-25] MEDS: Enoxaparin Sodium 80 MG/0.8 ML SYRINGE SC SCH (09:00)
[2021-09-25] MEDS: Aspirin Chewable 81 MG TAB PER TUBE SCH (09:59)
[2021-09-25] MEDS: fentaNYL Citrate-0.9 % NaCl/PF 100 ML IV SCH (10:01)
[2021-09-25] MEDS: cefTRIAXone\\ROCEPHIN 2 GM in Sodium Chloride 0.9% 100 ML IVPB SCH (11:30)
[2021-09-25] MEDS: Lorazepam 2 MG/ML VIAL SLOW IVP PRN ×3 (12:14→23:30)
[2021-09-25] MEDS: Vecuronium 10 MG VIAL IVP PRN ×3 (12:19→23:30)
[2021-09-25] MEDS: Furosemide 40 MG/4 ML VIAL SLOW IVP SCH (14:55)
[2021-09-25] MEDS ORDERED: Metoclopramide HCl 10 MG/2 ML VIAL IVP SCH (16:45)
[2021-09-25] MEDS: Metoclopramide HCl 10 MG/2 ML VIAL IVP SCH (21:53)
[2021-09-25] MEDS: Montelukast Sodium 10 mg Tablet PO SCH (21:53)
[2021-09-25] MEDS: Famotidine/PF 20 mg/2ml Vial SLOW IVP SCH (21:53)
[2021-09-26] MEDS: HumaLOG 300 UNITS/3 ML VIAL SC PRN ×6 (00:19→20:23)
[2021-09-26] MEDS: Propofol 1,000 MG/100 ML VIAL IV PRN ×4 (00:41→20:00)
[2021-09-26] MEDS: fentaNYL Citrate-0.9 % NaCl/PF 100 ML IV SCH ×2 (02:17→16:41)
[2021-09-26 05:10] LABS: Band 14 % (5-11); Hemoglobin 10.2 g/dL (12.0-16.0); Hypochromia SLIGHT = 6-15 cells (100X) (0-5/hpf); Lymphocytes 8 % (21-51); MDiff Complete? YES; Mean Corpuscular HGB CONC 31.5 g/dL (32.0-36.0); Mean Corpuscular Hemoglobin 29.3 pg (27.0-31.0); Monocytes 5 % (0-10); Neutrophil 73 % (42-75); Platelet Count 239 thou/uL (130-400); Platelet Morphology Comment Appears Adequate; RBC Distribution Width 13.5 % (11.5-14.5); White Blood Cell (WBC) Count 12.5 thou/uL (4.8-10.8)
[2021-09-26 05:17] LABS: ALT (SGPT) 21 U/L (8-55); AST (SGOT) 17 U/L (5-34); Alkaline Phosphatase 46 U/L (40-110); Anion Gap 9 mmol/L (10-20); BUN (Urea Nitrogen) 27 mg/dL (9.8-20.1); Bilirubin, Total Less than 0.2 mg/dL (0.2-1.2); Calc. Creatinine Clearance 78 mL/min (70-130); Calcium 8.6 mg/dL (7.8-10.44); Carbon Dioxide 31 mmol/L (23-31); Chloride 107 mmol/L (98-107); Globulin 2.6 g/dL (2.4-3.5); Glucose 197 mg/dL (83-110); Protein, Total 5.6 g/dL (5.8-8.1); Sodium 143 mmol/L (136-145)
[2021-09-26] MEDS: Metoclopramide HCl 10 MG/2 ML VIAL IVP SCH ×3 (06:11→21:30)
[2021-09-26] MEDS: Furosemide 40 MG/4 ML VIAL SLOW IVP SCH (06:11)
[2021-09-26] MEDS: methylPREDNISolone Sod Succ 40 MG VIAL IVP SCH ×3 (06:11→17:48)
[2021-09-26] MEDS: Arformoterol 15 MCG/2 ML NEB NEB SCH ×2 (07:20→18:23)
[2021-09-26] MEDS: Budesonide 0.5 MG/2 ML NEB NEB SCH ×2 (07:20→18:23)
[2021-09-26] MEDS: Vecuronium 10 MG VIAL IVP PRN ×4 (07:31→20:00)
[2021-09-26] MEDS: Lorazepam 2 MG/ML VIAL SLOW IVP PRN ×4 (07:31→20:00)
[2021-09-26 07:37] LABS: Actual Bicarbonate (HCO3a) 33.5 mEq/L (22-28); Base Excess (BEa) 6.7 mEq/L (-2.0 to +3.0); CO2 Tension 59.5 mmHg (35.0-45.0); Carboxyhemoglobin (COHb) 0.4 gm% (0.0-3.0); Hemoglobin (Hb) 11.3 g/dL (12.0-16.0); O2 Tension (PaO2), arterial 83.2 mmHg (> 70.0); Potassium - ABG Lab 3.91 mmol/L (3.70-5.30); pH, Arterial 7.37 (7.35-7.45)
[2021-09-26 07:41] LABS: ALV-art Gradient 127.625 mmHg (0-20); Puncture Site RBA
[2021-09-26] MEDS ORDERED: Magnesium Sulfate In Water 4 GM in Premix Bag 1 BAG IVPB SCH (09:00)
[2021-09-26] MEDS: Famotidine 20 MG TAB PO SCH ×2 (09:17→21:31)
[2021-09-26] MEDS: Aspirin Chewable 81 MG TAB PER TUBE SCH (09:17)
[2021-09-26] MEDS: Enoxaparin Sodium 40 MG/0.4 ML SYRINGE SC SCH (09:18)
[2021-09-26] MEDS: cefTRIAXone\\ROCEPHIN 2 GM in Sodium Chloride 0.9% 100 ML IVPB SCH (12:33)
[2021-09-26] MEDS: Montelukast Sodium 10 mg Tablet PO SCH (21:31)
[2021-09-26] MEDS: Senokot S 8.6-50 MG TAB PO SCH (21:31)
[2021-09-27] MEDS: methylPREDNISolone Sod Succ 40 MG VIAL IVP SCH ×4 (00:15→17:06)
[2021-09-27] MEDS: HumaLOG 300 UNITS/3 ML VIAL SC PRN ×6 (00:30→20:57)
[2021-09-27] MEDS: Lorazepam 2 MG/ML VIAL SLOW IVP PRN ×2 (02:37→22:19)
[2021-09-27] MEDS: Vecuronium 10 MG VIAL IVP PRN ×3 (02:37→22:19)
[2021-09-27] MEDS: Propofol 1,000 MG/100 ML VIAL IV PRN ×4 (02:37→20:30)
[2021-09-27 04:24] LABS: Band 7 % (5-11); Hemoglobin 10.5 g/dL (12.0-16.0); Lymphocytes 11 % (21-51); MDiff Complete? YES; Mean Corpuscular HGB CONC 31.8 g/dL (32.0-36.0); Mean Corpuscular Hemoglobin 29.7 pg (27.0-31.0); Mean Corpuscular Volume 93.6 fL (78.0-98.0); Mean Platelet Volume 6.7 fL (7.4-10.4); Metamyelocyte 4 % (0-0); Monocytes 6 % (0-10); Myelocyte 2 % (0-0); Neutrophil 70 % (42-75); Platelet Count 245 thou/uL (130-400); Platelet Morphology Comment Appears Adequate; RBC Distribution Width 13.6 % (11.5-14.5); RBC Morphology Normal; Red Blood Cell (RBC) Count 3.52 mill/uL (4.20-5.40); White Blood Cell (WBC) Count 13.5 thou/uL (4.8-10.8)
[2021-09-27 04:44] LABS: ALT (SGPT) 44 U/L (8-55); AST (SGOT) 33 U/L (5-34); Alkaline Phosphatase 44 U/L (40-110); Anion Gap 12 mmol/L (10-20); BUN (Urea Nitrogen) 29 mg/dL (9.8-20.1); Bilirubin, Total 0.2 mg/dL (0.2-1.2); Calc. Creatinine Clearance 79 mL/min (70-130); Calcium 8.4 mg/dL (7.8-10.44); Carbon Dioxide 34 mmol/L (23-31); Chloride 105 mmol/L (98-107); Globulin 2.6 g/dL (2.4-3.5); Glucose 206 mg/dL (83-110); Potassium 4.7 mmol/L (3.5-5.1); Protein, Total 5.6 g/dL (5.8-8.1); Sodium 146 mmol/L (136-145)
[2021-09-27] MEDS: Metoclopramide HCl 10 MG/2 ML VIAL IVP SCH ×3 (05:41→21:03)
[2021-09-27] MEDS: fentaNYL Citrate-0.9 % NaCl/PF 100 ML IV SCH ×2 (07:30→22:20)
[2021-09-27] MEDS: Budesonide 0.5 MG/2 ML NEB NEB SCH ×2 (07:45→18:07)
[2021-09-27] MEDS: Arformoterol 15 MCG/2 ML NEB NEB SCH ×2 (07:45→18:07)
[2021-09-27 07:48] LABS: Actual Bicarbonate (HCO3a) 37.9 mEq/L (22-28); Base Excess (BEa) 10.2 mEq/L (-2.0 to +3.0); Calcium, Ionized (arterial) 1.17 mmol/L (1.12-1.30); Carboxyhemoglobin (COHb) 0.4 gm% (0.0-3.0); Hemoglobin (Hb) 10.9 g/dL (12.0-16.0); O2 Tension (PaO2), arterial 72.7 mmHg (> 70.0); pH, Arterial 7.35 (7.35-7.45)
[2021-09-27 07:50] LABS: ALV-art Gradient 125.625 mmHg (0-20); CO2 Tension 69.5 mmHg (35.0-45.0); Puncture Site RRA
[2021-09-27] MEDS: Senokot S 8.6-50 MG TAB PO SCH ×2 (07:50→20:50)
[2021-09-27] MEDS: Aspirin Chewable 81 MG TAB PER TUBE SCH (07:50)
[2021-09-27] MEDS: Enoxaparin Sodium 40 MG/0.4 ML SYRINGE SC SCH (07:50)
[2021-09-27] MEDS: Famotidine 20 MG TAB PO SCH ×2 (07:50→20:51)
[2021-09-27] MEDS: cefTRIAXone\\ROCEPHIN 2 GM in Sodium Chloride 0.9% 100 ML IVPB SCH (12:31)
[2021-09-27] MEDS: Acetaminophen 650 MG/20.3 ML UDCUP PO PRN (18:39)
[2021-09-27] MEDS: Montelukast Sodium 10 mg Tablet PO SCH (20:50)
[2021-09-27 23:08] LABS: Mycoplasma pneumoniae IgG AB 361 U/mL (0-99); Mycoplasma pneumoniae IgM AB Less than 770 U/mL (0-769)
[2021-09-28] MEDS: methylPREDNISolone Sod Succ 40 MG VIAL IVP SCH ×5 (00:27→23:30)
[2021-09-28] MEDS: Propofol 1,000 MG/100 ML VIAL IV PRN ×3 (02:42→16:49)
[2021-09-28 04:05] LABS: ALT (SGPT) 63 U/L (8-55); AST (SGOT) 21 U/L (5-34); Albumin 3.2 g/dL (3.4-4.8); Alkaline Phosphatase 45 U/L (40-110); Anion Gap 11 mmol/L (10-20); BUN (Urea Nitrogen) 30 mg/dL (9.8-20.1); Bilirubin, Total 0.2 mg/dL (0.2-1.2); Calc. Creatinine Clearance 77 mL/min (70-130); Calcium 8.4 mg/dL (7.8-10.44); Carbon Dioxide 37 mmol/L (23-31); Chloride 103 mmol/L (98-107); Globulin 2.6 g/dL (2.4-3.5); Glucose 196 mg/dL (83-110); Potassium 5.2 mmol/L (3.5-5.1); Protein, Total 5.8 g/dL (5.8-8.1); Sodium 146 mmol/L (136-145)
[2021-09-28 04:09] LABS: Band 14 % (5-11); Hemoglobin 10.8 g/dL (12.0-16.0); Lymphocytes 16 % (21-51); MDiff Complete? YES; Mean Corpuscular HGB CONC 30.1 g/dL (32.0-36.0); Mean Corpuscular Hemoglobin 28.7 pg (27.0-31.0); Mean Corpuscular Volume 95.2 fL (78.0-98.0); Mean Platelet Volume 6.7 fL (7.4-10.4); Monocytes 11 % (0-10); Neutrophil 57 % (42-75); Platelet Count 260 thou/uL (130-400); Platelet Morphology Comment Appears Adequate; RBC Distribution Width 13.7 % (11.5-14.5); RBC Morphology Normal; Reactive Lymphocytes 2 % (0-10); Red Blood Cell (RBC) Count 3.76 mill/uL (4.20-5.40); White Blood Cell (WBC) Count 15.8 thou/uL (4.8-10.8)
[2021-09-28] MEDS: HumaLOG 300 UNITS/3 ML VIAL SC PRN ×6 (05:08→23:29)
[2021-09-28] MEDS: Metoclopramide HCl 10 MG/2 ML VIAL IVP SCH ×3 (05:44→20:58)
[2021-09-28] MEDS: Lorazepam 2 MG/ML VIAL SLOW IVP PRN ×4 (06:05→16:49)
[2021-09-28] MEDS: Vecuronium 10 MG VIAL IVP PRN ×4 (06:05→16:49)
[2021-09-28] MEDS: Arformoterol 15 MCG/2 ML NEB NEB SCH ×2 (07:04→19:20)
[2021-09-28] MEDS: Budesonide 0.5 MG/2 ML NEB NEB SCH ×2 (07:04→19:20)
[2021-09-28 08:06] LABS: Actual Bicarbonate (HCO3a) 36.6 mEq/L (22-28); Base Excess (BEa) 9.6 mEq/L (-2.0 to +3.0); Calcium, Ionized (arterial) 1.14 mmol/L (1.12-1.30); Carboxyhemoglobin (COHb) 0.5 gm% (0.0-3.0); Hemoglobin (Hb) 11.2 g/dL (12.0-16.0); O2 Tension (PaO2), arterial 77.4 mmHg (> 70.0); Potassium - ABG Lab 5.27 mmol/L (3.70-5.30); pH, Arterial 7.38 (7.35-7.45)
[2021-09-28 08:08] LABS: CO2 Tension 62.9 mmHg (35.0-45.0); Puncture Site RBA
[2021-09-28 08:09] LABS: ALV-art Gradient 129.175 mmHg (0-20)
[2021-09-28] MEDS: Famotidine 20 MG TAB PO SCH ×2 (08:25→20:42)
[2021-09-28] MEDS: Aspirin Chewable 81 MG TAB PER TUBE SCH (08:25)
[2021-09-28] MEDS: Acetaminophen 650 MG/20.3 ML UDCUP PO PRN ×2 (08:25→20:42)
[2021-09-28] MEDS: Senokot S 8.6-50 MG TAB PO SCH ×2 (08:25→20:42)
[2021-09-28] MEDS: Enoxaparin Sodium 40 MG/0.4 ML SYRINGE SC SCH (08:27)
[2021-09-28] MEDS ORDERED: Acetaminophen 650 MG/20.3 ML UDCUP PO PRN (09:29)
[2021-09-28] MEDS: fentaNYL Citrate-0.9 % NaCl/PF 100 ML IV SCH (10:47)
[2021-09-28] MEDS: cefTRIAXone\\ROCEPHIN 2 GM in Sodium Chloride 0.9% 100 ML IVPB SCH (10:54)
[2021-09-28] MEDS: Montelukast Sodium 10 mg Tablet PO SCH (20:42)
[2021-09-29] MEDS: Propofol 1,000 MG/100 ML VIAL IV PRN ×4 (00:18→19:49)
[2021-09-29] MEDS: fentaNYL Citrate-0.9 % NaCl/PF 100 ML IV SCH ×2 (01:58→16:50)
[2021-09-29 04:50] LABS: ALT (SGPT) 53 U/L (8-55); AST (SGOT) 16 U/L (5-34); Alkaline Phosphatase 41 U/L (40-110); Anion Gap 11 mmol/L (10-20); BUN (Urea Nitrogen) 29 mg/dL (9.8-20.1); Bilirubin, Total 0.2 mg/dL (0.2-1.2); Calc. Creatinine Clearance 83 mL/min (70-130); Calcium 8.6 mg/dL (7.8-10.44); Carbon Dioxide 36 mmol/L (23-31); Chloride 97 mmol/L (98-107); Globulin 2.5 g/dL (2.4-3.5); Glucose 188 mg/dL (83-110); Potassium 5.3 mmol/L (3.5-5.1); Protein, Total 5.5 g/dL (5.8-8.1); Sodium 139 mmol/L (136-145)
[2021-09-29 05:06] LABS: Band 5 % (5-11); Hemoglobin 10.8 g/dL (12.0-16.0); Lymphocytes 10 % (21-51); MDiff Complete? YES; Mean Corpuscular HGB CONC 32.1 g/dL (32.0-36.0); Mean Corpuscular Volume 93.5 fL (78.0-98.0); Mean Platelet Volume 6.9 fL (7.4-10.4); Metamyelocyte 8 % (0-0); Monocytes 5 % (0-10); Myelocyte 4 % (0-0); Neutrophil 68 % (42-75); Platelet Count 245 thou/uL (130-400); Platelet Morphology Comment Appears Adequate; RBC Distribution Width 13.7 % (11.5-14.5); RBC Morphology Normal; Red Blood Cell (RBC) Count 3.61 mill/uL (4.20-5.40); White Blood Cell (WBC) Count 16.4 thou/uL (4.8-10.8)
[2021-09-29] MEDS: Metoclopramide HCl 10 MG/2 ML VIAL IVP SCH ×3 (06:35→23:02)
[2021-09-29] MEDS: methylPREDNISolone Sod Succ 40 MG VIAL IVP SCH ×4 (06:36→23:05)
[2021-09-29] MEDS: HumaLOG 300 UNITS/3 ML VIAL SC PRN ×2 (06:36→21:42)
[2021-09-29] MEDS: Budesonide 0.5 MG/2 ML NEB NEB SCH ×2 (06:45→18:13)
[2021-09-29] MEDS: Arformoterol 15 MCG/2 ML NEB NEB SCH ×2 (06:45→18:14)
[2021-09-29 07:07] LABS: Actual Bicarbonate (HCO3a) 37.2 mEq/L (22-28); Base Excess (BEa) 11.6 mEq/L (-2.0 to +3.0); CO2 Tension 53.2 mmHg (35.0-45.0); Calcium, Ionized (arterial) 1.14 mmol/L (1.12-1.30); Carboxyhemoglobin (COHb) 0.5 gm% (0.0-3.0); Hemoglobin (Hb) 11.5 g/dL (12.0-16.0); O2 Tension (PaO2), arterial 111.4 mmHg (> 70.0); Potassium - ABG Lab 5.12 mmol/L (3.70-5.30); pH, Arterial 7.46 (7.35-7.45)
[2021-09-29 07:16] LABS: Puncture Site RRA
[2021-09-29] MEDS ORDERED: Fleet Enema 133 ML BOT PR SCH (09:00)
[2021-09-29] MEDS: Enoxaparin Sodium 40 MG/0.4 ML SYRINGE SC SCH (09:17)
[2021-09-29] MEDS: Senokot S 8.6-50 MG TAB PO SCH ×2 (09:17→19:13)
[2021-09-29] MEDS: Famotidine 20 MG TAB PO SCH ×2 (09:17→19:12)
[2021-09-29] MEDS: Aspirin Chewable 81 MG TAB PER TUBE SCH (09:17)
[2021-09-29] MEDS: Lorazepam 2 MG/ML VIAL SLOW IVP PRN ×3 (09:47→21:40)
[2021-09-29] MEDS: cefTRIAXone\\ROCEPHIN 2 GM in Sodium Chloride 0.9% 100 ML IVPB SCH (11:00)
[2021-09-29 12:22] LABS: SARS-CoV-2 PCR by NAA Not Detected (NotDetected)
[2021-09-29] MEDS: Montelukast Sodium 10 mg Tablet PO SCH (19:13)
[2021-09-29] MEDS: Sodium Chloride 0.9% 1,000 ML IV SCH (22:36)
[2021-09-30] MEDS: HumaLOG 300 UNITS/3 ML VIAL SC PRN ×6 (00:15→20:24)
[2021-09-30] MEDS: Lorazepam 2 MG/ML VIAL SLOW IVP PRN ×3 (01:43→20:26)
[2021-09-30] MEDS: Propofol 1,000 MG/100 ML VIAL IV PRN ×4 (02:18→23:00)
[2021-09-30 03:49] LABS: Hemoglobin 10.9 g/dL (12.0-16.0); Mean Corpuscular HGB CONC 31.7 g/dL (32.0-36.0); Mean Corpuscular Hemoglobin 29.3 pg (27.0-31.0); Mean Corpuscular Volume 92.4 fL (78.0-98.0); Mean Platelet Volume 7.2 fL (7.4-10.4); Platelet Count 212 thou/uL (130-400); RBC Distribution Width 13.8 % (11.5-14.5); Red Blood Cell (RBC) Count 3.72 mill/uL (4.20-5.40); White Blood Cell (WBC) Count 15.5 thou/uL (4.8-10.8)
[2021-09-30 03:55] LABS: ALT (SGPT) 37 U/L (8-55); AST (SGOT) 12 U/L (5-34); Alkaline Phosphatase 40 U/L (40-110); Anion Gap 12 mmol/L (10-20); BUN (Urea Nitrogen) 31 mg/dL (9.8-20.1); Bilirubin, Total 0.2 mg/dL (0.2-1.2); Calc. Creatinine Clearance 85 mL/min (70-130); Calcium 8.6 mg/dL (7.8-10.44); Carbon Dioxide 36 mmol/L (23-31); Chloride 95 mmol/L (98-107); Globulin 2.5 g/dL (2.4-3.5); Glucose 185 mg/dL (83-110); Potassium 4.8 mmol/L (3.5-5.1); Protein, Total 5.5 g/dL (5.8-8.1); Sodium 138 mmol/L (136-145)
[2021-09-30 04:07] LABS: Band 15 % (5-11); Lymphocytes 10 % (21-51); MDiff Complete? YES; Monocytes 8 % (0-10); Neutrophil 67 % (42-75); Nucleated RBC 1 % (0)
[2021-09-30] MEDS: methylPREDNISolone Sod Succ 40 MG VIAL IVP SCH ×4 (05:22→23:01)
[2021-09-30] MEDS: Metoclopramide HCl 10 MG/2 ML VIAL IVP SCH ×3 (05:22→21:00)
[2021-09-30] MEDS: Arformoterol 15 MCG/2 ML NEB NEB SCH ×2 (06:57→18:25)
[2021-09-30] MEDS: Budesonide 0.5 MG/2 ML NEB NEB SCH ×2 (06:57→18:25)
[2021-09-30 07:05] LABS: Actual Bicarbonate (HCO3a) 35.6 mEq/L (22-28); Base Excess (BEa) 10.1 mEq/L (-2.0 to +3.0); CO2 Tension 52.5 mmHg (35.0-45.0); Calcium, Ionized (arterial) 1.15 mmol/L (1.12-1.30); Carboxyhemoglobin (COHb) 0.6 gm% (0.0-3.0); Hemoglobin (Hb) 11.2 g/dL (12.0-16.0); O2 Tension (PaO2), arterial 77.2 mmHg (> 70.0); Potassium - ABG Lab 4.75 mmol/L (3.70-5.30); pH, Arterial 7.45 (7.35-7.45)
[2021-09-30 07:06] LABS: ALV-art Gradient 71.075 mmHg (0-20); Puncture Site RRA
[2021-09-30] MEDS: Aspirin Chewable 81 MG TAB PER TUBE SCH (08:49)
[2021-09-30] MEDS: Senokot S 8.6-50 MG TAB PO SCH ×2 (08:49→21:00)
[2021-09-30] MEDS: Enoxaparin Sodium 40 MG/0.4 ML SYRINGE SC SCH (08:49)
[2021-09-30] MEDS: Famotidine 20 MG TAB PO SCH ×2 (08:49→21:00)
[2021-09-30] MEDS: fentaNYL Citrate-0.9 % NaCl/PF 100 ML IV SCH (10:31)
[2021-09-30] MEDS: cefTRIAXone\\ROCEPHIN 2 GM in Sodium Chloride 0.9% 100 ML IVPB SCH (11:58)
[2021-09-30 14:37] VITALS: BMI 31.0
[2021-09-30] MEDS: Montelukast Sodium 10 mg Tablet PO SCH (21:00)
[2021-10-01] MEDS: HumaLOG 300 UNITS/3 ML VIAL SC PRN ×4 (00:14→12:06)
[2021-10-01] MEDS: fentaNYL Citrate-0.9 % NaCl/PF 100 ML IV SCH (00:15)
[2021-10-01] MEDS: Propofol 1,000 MG/100 ML VIAL IV PRN ×3 (04:23→12:18)
[2021-10-01 04:44] LABS: Hemoglobin 10.9 g/dL (12.0-16.0); Mean Corpuscular HGB CONC 31.9 g/dL (32.0-36.0); Mean Corpuscular Hemoglobin 29.8 pg (27.0-31.0); Mean Corpuscular Volume 93.3 fL (78.0-98.0); Mean Platelet Volume 7.4 fL (7.4-10.4); Platelet Count 206 thou/uL (130-400); Red Blood Cell (RBC) Count 3.67 mill/uL (4.20-5.40); White Blood Cell (WBC) Count 15.7 thou/uL (4.8-10.8)
[2021-10-01 04:56] LABS: ALT (SGPT) 30 U/L (8-55); AST (SGOT) 10 U/L (5-34); Albumin 3.1 g/dL (3.4-4.8); Alkaline Phosphatase 38 U/L (40-110); Anion Gap 13 mmol/L (10-20); BUN (Urea Nitrogen) 30 mg/dL (9.8-20.1); Bilirubin, Total 0.2 mg/dL (0.2-1.2); Calc. Creatinine Clearance 87 mL/min (70-130); Calcium 8.7 mg/dL (7.8-10.44); Carbon Dioxide 34 mmol/L (23-31); Chloride 96 mmol/L (98-107); Globulin 2.5 g/dL (2.4-3.5); Glucose 205 mg/dL (83-110); Potassium 4.8 mmol/L (3.5-5.1); Protein, Total 5.6 g/dL (5.8-8.1); Sodium 138 mmol/L (136-145)
[2021-10-01 05:14] LABS: Band 17 % (5-11); Lymphocytes 3 % (21-51); MDiff Complete? YES; Metamyelocyte 3 % (0-0); Monocytes 1 % (0-10); Myelocyte 5 % (0-0); Neutrophil 71 % (42-75)
[2021-10-01] MEDS: methylPREDNISolone Sod Succ 40 MG VIAL IVP SCH ×2 (05:25→12:07)
[2021-10-01] MEDS: Metoclopramide HCl 10 MG/2 ML VIAL IVP SCH ×2 (05:25→14:23)
[2021-10-01] MEDS: Budesonide 0.5 MG/2 ML NEB NEB SCH (07:08)
[2021-10-01] MEDS: Arformoterol 15 MCG/2 ML NEB NEB SCH (07:08)
[2021-10-01 07:22] LABS: Actual Bicarbonate (HCO3a) 34.9 mEq/L (22-28); Base Excess (BEa) 8.8 mEq/L (-2.0 to +3.0); CO2 Tension 56.1 mmHg (35.0-45.0); Calcium, Ionized (arterial) 1.16 mmol/L (1.12-1.30); Carboxyhemoglobin (COHb) 0.3 gm% (0.0-3.0); Hemoglobin (Hb) 10.7 g/dL (12.0-16.0); O2 Tension (PaO2), arterial 84.1 mmHg (> 70.0); Potassium - ABG Lab 4.44 mmol/L (3.70-5.30); pH, Arterial 7.41 (7.35-7.45)
[2021-10-01 08:02] LABS: ALV-art Gradient 130.975 mmHg (0-20); Puncture Site RRA
[2021-10-01] MEDS: Aspirin Chewable 81 MG TAB PER TUBE SCH (09:12)
[2021-10-01] MEDS: Enoxaparin Sodium 40 MG/0.4 ML SYRINGE SC SCH (09:13)
[2021-10-01] MEDS: Famotidine 20 MG TAB PO SCH (09:13)
[2021-10-01] MEDS: Senokot S 8.6-50 MG TAB PO SCH (09:13)
[2021-10-01] MEDS ORDERED: Amlodipine 5 MG TAB PO SCH (09:45)
[2021-10-01 12:17] VITALS: TEMP 98.6
[2021-10-01 13:40] VITALS: BP 156/104
[2021-10-01] MEDS: Morphine 2 MG/ML VIAL SLOW IVP PRN ×2 (15:00→16:12)
[2021-10-01] MEDS: Lorazepam 2 MG/ML VIAL SLOW IVP PRN (16:12)
[2021-10-02] MEDS ORDERED: Amlodipine 5 MG TAB PO SCH (09:00)
== END 2021-10-01 16:36 | disposition hospice, inpatient (51) | DRG 870 ==
LOC: ERS 06:09 → SUATTDRO 06:09 → CCU 06:40
PROVIDERS: ADMIT Family Medicine; ATTEND Family Medicine
PROC: 5A1955Z Respiratory Ventilation, Greater than 96 Consecutive Hours (ICD-10-PCS; principal; 2021-09-22)
PROC: 3E03329 Introduction of Other Anti-infective into Peripheral Vein, Percutaneous Approach (ICD-10-PCS; 2021-09-22)
PROC: 3E04329 Introduction of Other Anti-infective into Central Vein, Percutaneous Approach (ICD-10-PCS; 2021-09-22)
PROC: 3E033XZ Introduction of Vasopressor into Peripheral Vein, Percutaneous Approach (ICD-10-PCS; 2021-09-22)
PROC: 0BH17EZ Insertion of Endotracheal Airway into Trachea, Via Natural or Artificial Opening (ICD-10-PCS; 2021-09-22)
PROC: 0D9670Z Drainage of Stomach with Drainage Device, Via Natural or Artificial Opening (ICD-10-PCS; 2021-09-22)
PROC: 5A09357 Assistance with Respiratory Ventilation, Less than 24 Consecutive Hours, Continuous Positive Airway Pressure (ICD-10-PCS; 2021-09-22)
PROC: 05H633Z Insertion of Infusion Device into Left Subclavian Vein, Percutaneous Approach (ICD-10-PCS; 2021-09-22)
PROC: 02HV33Z Insertion of Infusion Device into Superior Vena Cava, Percutaneous Approach (ICD-10-PCS; 2021-09-25)
PROC: B548ZZA Ultrasonography of Superior Vena Cava, Guidance (ICD-10-PCS; 2021-09-25)
DX: A41.9 Sepsis, unspecified organism (principal); Z66 Do not resuscitate; Z20.822 Contact with and (suspected) exposure to COVID-19; Z51.5 Encounter for palliative care; J96.21 Acute and chronic respiratory failure with hypoxia; J96.22 Acute and chronic respiratory failure with hypercapnia; J18.9 Pneumonia, unspecified organism; I21.A1 Myocardial infarction type 2; R65.21 Severe sepsis with septic shock; J44.1 Chronic obstructive pulmonary disease with (acute) exacerbation; C34.90 Malignant neoplasm of unspecified part of unspecified bronchus or lung; J44.0 Chronic obstructive pulmonary disease with (acute) lower respiratory infection; K50.90 Crohn's disease, unspecified, without complications; J45.902 Unspecified asthma with status asthmaticus; E87.2 Acidosis; I08.1 Rheumatic disorders of both mitral and tricuspid valves; R73.9 Hyperglycemia, unspecified; E87.70 Fluid overload, unspecified; Z78.1 Physical restraint status; Z79.899 Other long term (current) drug therapy; Z79.82 Long term (current) use of aspirin; Z79.51 Long term (current) use of inhaled steroids; Z90.49 Acquired absence of other specified parts of digestive tract; Z98.890 Other specified postprocedural states; Z87.891 Personal history of nicotine dependence; Z85.118 Personal history of other malignant neoplasm of bronchus and lung; Z99.81 Dependence on supplemental oxygen; Z79.890 Hormone replacement therapy; Z92.3 Personal history of irradiation
CPT/HCPCS: 31500; 36416; 36556; 36600; 51702; 71045; 80053; 80061; 80202; 82553; 82805; 83036; 83605; 83880; 84145; 84484; 85025; 87040; 87081; 87449; 87899; 89220; 93005; 93010; 93306; 94002; 94003; 94640; 94644; 94660; 96365; 96366; 96367; 96375; J0692; J0696; J1650; J1815; J1940; J1956; J2060; J2185; J2250; J2270; J2704; J2765; J2920; J3370; J3475; J3490; J7050; J7611; J7620; J7626; S0028; U0003; U0005

== ENCOUNTER 2021-10-01 17:03 | Inpatient (IN) | payer OTHER ==
[2021-10-01 17:13] VITALS: BMI 30.4
[2021-10-01] MEDS ORDERED: Acetaminophen 650 MG Suppository PR PRN (17:30)
[2021-10-01] MEDS ORDERED: Haloperidol Lactate 5 MG/ML VIAL SLOW IVP PRN (17:30)
[2021-10-01] MEDS ORDERED: Promethazine HCl 25 MG SUPP PR PRN (17:30)
[2021-10-01] MEDS ORDERED: Ondansetron PF 4 MG/2 ML Vial IVP PRN (17:30)
[2021-10-01] MEDS ORDERED: Scopolamine 1.5 mg/72 hour Patch TOP PRN (17:30)
[2021-10-01] MEDS: Lorazepam 2 MG/ML VIAL SLOW IVP PRN ×3 (17:33→23:40)
[2021-10-01] MEDS: Morphine 4 MG/ML VIAL SLOW IVP PRN ×9 (17:36→23:03)
[2021-10-01] MEDS: diphenhydrAMINE 50 MG/ML VIAL IVP PRN (19:30)
[2021-10-01] MEDS: methylPREDNISolone Sod Succ/PF 125 MG/2 ML VIAL IVP SCH (20:25)
[2021-10-02] MEDS: Morphine 4 MG/ML VIAL SLOW IVP PRN ×16 (01:15→19:09)
[2021-10-02] MEDS: diphenhydrAMINE 50 MG/ML VIAL IVP PRN ×2 (03:08→15:13)
[2021-10-02] MEDS: Lorazepam 2 MG/ML VIAL SLOW IVP PRN ×2 (08:16→11:08)
[2021-10-02] MEDS: methylPREDNISolone Sod Succ/PF 125 MG/2 ML VIAL IVP SCH (09:18)
[2021-10-03] MEDS ORDERED: methylPREDNISolone Sod Succ/PF 125 MG/2 ML VIAL IVP SCH (09:00)
== END 2021-10-02 20:01 | disposition expired | DRG 951 ==
LOC: CCU 17:03 → MSONC 10-02 14:52
PROVIDERS: ADMIT Family Medicine; ATTEND Family Medicine
DX: Z51.5 Encounter for palliative care (principal); A41.9 Sepsis, unspecified organism; J18.9 Pneumonia, unspecified organism; J44.0 Chronic obstructive pulmonary disease with (acute) lower respiratory infection; Z66 Do not resuscitate; Z85.118 Personal history of other malignant neoplasm of bronchus and lung
CPT/HCPCS: J1200; J1630; J2060; J2270; J2930